=== PATIENT | female | born 1940 | race Caucasian/White ===

== ENCOUNTER → 2016-10-07 | Outpatient (CLI) | payer OTHER ==
[~2016-10-07] VITALS: Ht 172.7 cm; Wt 101.4 kg
[~2016-10-07] MED LIST: ACET-1311 PO; CLC/300 PO; DOCU-94 PO; EPP3/2 INJ; GABA-113 PO; LOSA1TAB PO; MISCCAP80 PO; OXYB3.9D TD; POLY1SOL6 OP; SYN100 PO; TRAM-10 PO; [UNRECOGNIZED DRUG - CODE] PO; [UNRECOGNIZED DRUG - CODE] PV
[2016-10-07 13:39] VITALS: BP 162/90; PULSE 83; Ht 172.7 cm; Wt 101.4 kg
== END | disposition home or self-care (01) ==
LOC: C.NEUR 13:07
PROVIDERS: ATTEND Internal Medicine Pulmonary Disease
DX: G47.33 Obstructive sleep apnea (adult) (pediatric) (principal); J45.909 Unspecified asthma, uncomplicated

== ENCOUNTER → 2017-01-20 | Outpatient (CLI) | payer OTHER ==
[2017-01-20 12:21] LABS: HEMATOCRIT 43.2 % (37-47); MEAN CELL VOLUME 92.1 fL (80-100); MEAN CORPUSCULAR HEMOGLOBIN 29.6 pg (25-34); MEAN CORPUSCULAR HGB CONC 32.2 g/dl (32-36); MEAN PLATELET VOLUME 10.6 fL (7.4-10.4); PLATELET COUNT 258 K/uL (130-400); RED BLOOD COUNT 4.69 M/uL (4.2-5.4); WHITE BLOOD COUNT 5.55 K/uL (4.8-10.8)
[2017-01-20 12:52] LABS: ESTIMATED AVERAGE GLUCOSE 123 mg/dl; HA1C FLAG Normal (Normal)
[2017-01-20 13:20] LABS: ALB/GLOB RATIO 1.2 (0.9-2); ALKALINE PHOSPHATASE 91 U/L (45-117); ALT/SGPT 26 U/L (12-78); AST/SGOT 20 U/L (15-37); BLOOD UREA NITROGEN 19 mg/dl (7-18); BUN/CREATININE RATIO 19.1 (10-20); CALCIUM 8.9 mg/dl (8.5-10.1); CARBON DIOXIDE 29 mmol/L (21-32); CHLORIDE 104 mmol/L (98-107); CHOLESTEROL 220 mg/dl (0-200); CHOLESTEROL/HDL RATIO 3.9; GLUCOSE 99 mg/dl (70-99); HDL CHOLESTEROL 56 mg/dl; LDL CHOLESTEROL CALCULATED 136 mg/dl; SODIUM 141 mmol/L (136-145); TRIGLYCERIDES 138 mg/dl (0-150); VERY LOW DENSITY LIPOPROT CALC 28 mg/dl
== END | disposition home or self-care (01) ==
LOC: C.LABPBG 09:57
PROVIDERS: ATTEND Family Medicine
DX: I12.9 Hypertensive chronic kidney disease with stage 1 through stage 4 chronic kidney disease, or unspecified chronic kidney disease (principal); E03.9 Hypothyroidism, unspecified; E78.5 Hyperlipidemia, unspecified; R73.01 Impaired fasting glucose; N18.3 Chronic kidney disease, stage 3 (moderate)

== ENCOUNTER → 2017-05-23 | Outpatient (CLI) | payer OTHER ==
[~2017-05-23] VITALS: Ht 172.7 cm; Wt 214.6 kg
[2017-05-23 14:52] VITALS: BP 147/64; PULSE 84; Ht 172.7 cm; Wt 214.6 kg
== END | disposition home or self-care (01) ==
LOC: C.NEUR 13:25
PROVIDERS: ATTEND Physician Assistant
DX: G47.30 Sleep apnea, unspecified (principal)

== ENCOUNTER → 2017-08-12 | Outpatient (CLI) | payer OTHER ==
[2017-08-12 12:18] LABS: ESTIMATED AVERAGE GLUCOSE 105 mg/dl; HA1C FLAG Normal (Normal)
[2017-08-12 12:35] LABS: ALT/SGPT 25 U/L (12-78); BLOOD UREA NITROGEN 20 mg/dl (7-18); CALCIUM 9.4 mg/dl (8.5-10.1); CARBON DIOXIDE 33 mmol/L (21-32); CHLORIDE 103 mmol/L (98-107); CREATININE 0.96 mg/dl (0.60-1.20); GLUCOSE 96 mg/dl (70-99); POTASSIUM 4.2 mmol/L (3.5-5.1); SODIUM 141 mmol/L (136-145)
[2017-08-12 12:38] LABS: CHOLESTEROL 200 mg/dl (0-200); CHOLESTEROL/HDL RATIO 4.3; HDL CHOLESTEROL 47 mg/dl; LDL CHOLESTEROL CALCULATED 129 mg/dl; TRIGLYCERIDES 121 mg/dl (0-150); VERY LOW DENSITY LIPOPROT CALC 24 mg/dl
== END | disposition home or self-care (01) ==
LOC: C.LABPBG 10:56
PROVIDERS: ATTEND Family Medicine
DX: I10 Essential (primary) hypertension (principal); N18.3 Chronic kidney disease, stage 3 (moderate); E03.9 Hypothyroidism, unspecified; R73.01 Impaired fasting glucose; E87.6 Hypokalemia; M25.50 Pain in unspecified joint

== ENCOUNTER → 2017-08-28 | Outpatient (CLI) | payer OTHER | END | disposition home or self-care (01) | LOC: C.LABPBG 10:07 | PROVIDERS: ATTEND Family Medicine | DX: M25.571 Pain in right ankle and joints of right foot (principal) ==

== ENCOUNTER → 2018-05-05 | Outpatient (CLI) | payer OTHER | END | disposition home or self-care (01) | LOC: C.MAMM 09:55 | PROVIDERS: ATTEND Family Medicine | DX: Z78.0 Asymptomatic menopausal state (principal) ==

== ENCOUNTER 2018-11-12 20:54 | Inpatient (IN) ==
[2018-11-12] MEDS ORDERED: ONDANSETRON INJ 2 MG/ML 2 ML VIAL IV STA (21:59)
[2018-11-12] MEDS ORDERED: GI COCKTAIL ED USE PO ONE (21:59)
[2018-11-12] MEDS ORDERED: SODIUM CHLORIDE 0.9% 500 ML IV SCH (22:00)
[2018-11-12 22:07] LABS: Basophils # (auto) 0.03 K/uL (0-0.2); Basophils % (auto) 0.2 %; Eosinophils # (auto) 0.04 K/uL (0-0.5); Eosinophils % (auto) 0.2 %; Hematocrit (blood only) 43.3 % (37-47); Hemoglobin 14.4 g/dL (12.0-16.0); Immature Granulocytes # (auto) 0.05 K/uL (0.00-0.02); Immature Granulocytes % (auto) 0.3 %; Lymphocytes # (auto) 1.28 K/uL (1.2-3.4); Lymphocytes % (auto) 6.8 %; Mean Corpuscular Hgb Conc 33.3 g/dL (32-36); Mean Corpuscular Volume 92.9 fL (80-100); Mean Platelet Volume 11.1 fL (7.4-10.4); Monocytes # (auto) 0.99 K/uL (0.11-0.59); Monocytes % (auto) 5.3 %; Neutrophils % (auto) 87.2 %; Platelet Count 122 K/uL (130-400); RDW Coefficient of Variation 14.2 % (11.5-14.5); RDW Standard Deviation 47.7 fL (36.4-46.3); Red Blood Count 4.66 M/uL (4.2-5.4); White Blood Count 18.69 K/uL (4.8-10.8)
--- NOTE | 2018-11-12 22:13 | XRay Report ---
XR chest 1V portable HISTORY: Atypical chest Pain COMPARISON: Chest 05/06/2015. FINDINGS: No pneumothorax. No pleural effusions. The heart is mildly enlarged. No focal lung consolid ations to suggest pneumonia. No evidence for pulmonary edema. Metallic anchor within the left shoulde r. IMPRESSION: Mild cardiomegaly. No evidence for pulmonary edema. Electronically signed by: Jorge Alex M.D. 11/12/2018 10:12 PM
[2018-11-12 22:14] LABS: Albumin Level 3.6 gm/dl (3.4-5.0); BUN Creatinine Ratio 26.4 (10-20); Calcium 8.9 mg/dl (8.5-10.1); Creatinine Clr Calc Pharmacy 35.4 ml/min; Est GFR (African American) 44.7; Est GFR (Non-African American) 38.5; Magnesium 2.3 mg/dl (1.8-2.4)
[2018-11-12 22:28] LABS: Albumin Globulin Ratio 0.9 (0.9-2); Bilirubin,Total 0.7 mg/dl (0.2-1); Globulin 3.9 gm/dl (2.5-4.0); Total Protein 7.5 gm/dl (6.4-8.2); Troponin I 1.76 ng/ml (0-0.045)
[2018-11-12] MEDS ORDERED: IOVERSOL 100ml IV PRN (22:35)
[2018-11-12 22:44] LABS: Amphetamines+Metham, Urine Neg (Neg); Barbiturates, Urine Neg (Neg); Benzodiazepine, Urine Neg (Neg); Cocaine, Urine Neg (Neg); MDMA (Ecstacy), Urine Neg (Neg); Methadone, Urine Neg (Neg); Opiate, Urine Neg (Neg); Phencyclidine, Urine Neg (Neg)
--- NOTE | 2018-11-12 22:45 | Emergency Department Note ---
ED Visit Note I have seen and examined this patient with Veronique Juarez and agree with the treatment plan .
--- NOTE | 2018-11-12 22:54 | CT Scan Report ---
ABDOMEN AND PELVIS CT WITH IV CONTRAST CT DOSE: 489.12 mGy.cm HISTORY: mid abd pain TECHNIQUE: Multiaxial CT images of the abdomen and pelvis were performed following the use of intrave nous contrast. A dose lowering technique was utilized adhering to the principles of ALARA. COMPARISON STUDY: None. FINDINGS: Mild emphysema but lung bases. No pneumoperitoneum. No pneumatosis. No suspicious lytic or blastic osseous lesions. Small fat-containing right-sided Bochdalek hernia. Cholecystectomy. The live r, pancreas, spleen and adrenal glands are unremarkable. No retroperitoneal lymphadenopathy. Left cir cumaortic renal vein. Calcified plaque within the normal caliber abdominal aorta. Moderate bladder wa ll thickening. Hysterectomy. Colonic diverticulosis. No evidence for diverticulitis. Trace pelvic indra e fluid. No bowel wall thickening or obstruction. Fluid-filled large and small bowel. No hydronephros is. Bilateral renal hypodense lesions. Dominant upper pole lesions measure 1.9 cm on the right and 2 cm on the left. These are consistent with cysts. A few additional subcentimeter left renal hypodense lesions which are too small to characterize. There is an 11 mm hypodense lesion within the lower pole of the left kidney which is difficult to characterize but favors a cyst. IMPRESSION: 1. No bowel wall thickening or obstruction. 2. Fluid-filled nondilated loops of large and small bowel. This can be seen the setting of a diarrhea l illness/gastroenteritis. 3. Cholecystectomy and appendectomy. 4. Hysterectomy. 5. Colonic diverticulosis. 6. Moderate bladder wall thickening. This could be due to underdistention. Recommend correlation with urinalysis. 7. Bilateral renal hypodense lesions as described above. Electronically signed by: Jorge Alex M.D. 11/12/2018 10:51 PM
[2018-11-12 23:26] LABS: INR 1.1 (0.9-1.1); Partial Thromboplastin Ratio 1.2; Partial Thromboplastin Time 32.3 Seconds (21.0-31.0); Prothrombin Time 10.7 Seconds (9.0-12.0)
[2018-11-12] MEDS ORDERED: HEPARIN SOD (PORCINE) 1000 UNIT/ML 10 ML VIAL ONE (23:28)
[2018-11-12] MEDS ORDERED: HEPARIN 25000 UNIT/500 ML D5W IV ONE (23:29)
[2018-11-12] MEDS ORDERED: HEPARIN STANDARD DEXTROSE 25,000 UNITS/500 ML IV SCH (23:29)
[2018-11-12] MEDS ORDERED: HEPARIN SOD (PORCINE) 1000 UNIT/ML 10 ML VIAL IV ONE (23:30)
--- NOTE | 2018-11-12 23:44 | Emergency Department Note ---
History of Present Illness General Chief complaint: Dehydration Stated complaint: DEHYDRATED, ABDOMINAL PAIN History of Present Illness Maximum Pain Intensity: 7 This 77-year-old presents to the ER complaining of abdominal pain and diarrhea Location: Mid abdomen Quality: Aching Severity: Moderate Duration: 2 days Timin days ago Context: Symptoms persisted and patient came in Modifying factors: better with nothing; worse with eating Patient states his been so nauseous she has not been able to eat. She went to urgent care was sent here to the ER. Patient denies chest pain, dyspnea, fevers , vomiting, back pain, urinary symptoms. No recent antibiotics or well water. She has been having some diarrhea today. Home Medications Home Medications Medication Instructions Recorded Confirmed Type Acetaminophen (Tylenol) 650 mg PO Q4H PRN #0 tab 05/06/15 History Clindamycin HCl 600 mg PO PRN/UD 7 Days #21 cap 05/06/15 History DOCUSATE SODIUM (COLACE) 100 mg PO DAILY 15 Days #30 cap 05/06/15 History EPINEPHRINE (EPIPEN 2-SADE) 0.3 mg INJ PRN #0 05/06/15 History Gabapentin (Neurontin) 300 mg PO BID #0 cap 05/06/15 History LOSARTAN POTASSIUM (COZAAR) 25 mg PO DAILY 30 Days #30 tab 05/06/15 History NIZATIDINE (AXID AR) 150 mg PO BID #0 05/06/15 History Oxybutynin Chloride (Oxytrol) 1 patch TRANSDERMAL TW #0 patch 05/06/15 History POLYETHYLENE GLYCOL-PROPYLENE 1 drp OPHTHALMIC (EYE) BID PRN #30 05/06/15 History (SYSTANE ULTRA) ml PROBIOTIC PRODUCT (PROBIOTIC) 1 cap PO DAILY #0 05/06/15 History Tramadol (Ultram) 50 mg PO Q6H PRN #0 tab 05/06/15 History Levothyroxine Sodium (Synthroid) 125 mcg PO DAILYBB #30 tab 05/08/15 Rx Miconazole Nitrate (Sm Miconazole 1 supp VAGINAL HS #7 supp 05/08/15 Rx 7) Allergies Allergy/AdvReac Type Severity Reaction Status Date / Time Penicillins Allergy Severe anaphylaxis Verified 05/06/15 01:43 moxifloxacin Allergy Unknown ITCHING, Verified 05/06/15 01:43 REDNESS codeine AdvReac Unknown dizzy Verified 05/06/15 01:43 cortisone AdvReac Unknown reddness Verified 05/06/15 01:43 in face. ephedrine AdvReac Unknown DIZZY Verified 05/06/15 01:43 Past Med/Surg History Medical History Hyponatremia (Acute) High blood pressure Social History Feels Safe at Home: Yes Smoking Status: Former smoker Review of Systems All systems reviewed & are unremarkable except as noted in HPI & below Physical Exam Vital Signs Vital Signs - 24 hr 11/12/18 21:03 11/12/18 23:18 Temperature 36.5 C Temperature Source Oral Sepsis Recent Fever Within 48 Hours No Sepsis New/Unexplained Change in Mental Status No Sepsis Action Taken by Nursing No Action Required Pulse Rate 101 H Pulse Rate [Right Finger] 85 Pulse Rhythm Regular Pulse Strength Normal Respiratory Rate 19 16 Respiratory Effort / Characteristics Non-Labored Spontaneous Respiratory Depth Normal Respiratory Pattern Regular Blood Pressure 154/65 H Blood Pressure [Right Arm] 168/86 H Blood Pressure Mean 94 Blood Pressure Mean [Right Arm] 113 Blood Pressure Position Sitting Pulse Oximetry 95 95 Oxygen Delivery Method Room Air VITALS: Vitals are noted on the nurse's note and reviewed by myself. Vital signs stable. GENERAL: Pleasant female, in no acute distress, nondiaphoretic, well-developed well-nourished. SKIN: The skin was without rashes, erythema, edema, or bruising. There is no tenting of the skin. Capillary reflex less than 2 seconds. HEAD: Normocephalic atraumatic. EARS: External auditory canals clear, tympanic membranes pearly vasquez without erythema or effusion bilaterally. EYES: Pupils equal round and reactive to light and accommodation. Conjunctivae without injection, sclerae without icterus. Extraocular movements intact. NOSE: Patent, turbinates without inflammation or discharge. MOUTH: Mucous membranes mildly dry. Pharynx without erythema or exudate. Uvula midline. Airway patent. Tongue does not deviate. NECK: Supple without nuchal rigidity. No lymphadenopathy. No thyromegaly. Cervical spine is nontender. No JVD. HEART: Irregularly irregular LUNGS: Clear to auscultation bilaterally without wheezes, rales or rhonchi. No retractions or accessory muscle use. ABDOMEN: Positive bowel sounds x 4. Normal tympanic percussion. Soft, tender to palpation mid abdomen , without masses or organomegaly. Daniels sign negative. No guarding or rebound tenderness. No CVA tenderness MUSCULOSKELETAL: No muscle atrophy, erythema, or edema noted. NEURO: Patient was alert and oriented to person place and time. Normal sensation to light and sharp touch. No focal neurological deficits. Course Administered Medications Ioversol (Optiray 320 100ml) 89 ml IV ONCE PRN PRN Reason: Interaction Checking Stop: 11/16/18 22:34 Last Admin: 11/12/18 22:36 Dose: 1 ml Discontinued Medications Al Hydrox/Mg Hydrox/Simethicone () 1 dose PO ONE ONE Stop: 11/12/18 22:00 Last Admin: 11/12/18 22:13 Dose: 1 dose Sodium Chloride (Nss) 500 mls @ 999 mls/hr IV .Q31M ARISTIDES Stop: 11/12/18 22:30 Last Infusion: 11/12/18 23:17 Dose: 0 mls/hr Admin: 11/12/18 22:14 Dose: 999 mls/hr Ondansetron HCl (Zofran) 4 mg IV NOW STA Stop: 11/12/18 22:00 Last Admin: 11/12/18 22:14 Dose: 4 mg Medical Decision Making Medical Records Attestation: I reviewed the patient's medical records. Home Medications Current Medication List: was personally reviewed by me Laboratory Data Attestation: I reviewed the patient's lab results. Result diagrams: 11/12/18 21:20 11/12/18 21:20 Lab Results 11/12/18 11/12/18 11/12/18 Range/Units 21:20 21:20 21:20 WBC 18.69 H (4.8-10.8) K/uL RBC 4.66 (4.2-5.4) M/uL Hgb 14.4 (12.0-16.0) g/dL Hct 43.3 (37-47) % MCV 92.9 (80-100) fL MCH 30.9 (25-34) pg MCHC 33.3 (32-36) g/dL RDW Std Deviation 47.7 H (36.4-46.3) fL RDW Coeff of Carrie 14.2 (11.5-14.5) % Plt Count 122 L (130-400) K/uL MPV 11.1 H (7.4-10.4) fL Immature Gran % (Auto) 0.3 % Neut % (Auto) 87.2 % Lymph % (Auto) 6.8 % [place] % (Auto) 5.3 % Eos % (Auto) 0.2 % Baso % (Auto) 0.2 % Immature Gran # (Auto) 0.05 H (0.00-0.02) K/uL Neut # (Auto) 16.30 H (1.4-6.5) K/uL Lymph # (Auto) 1.28 (1.2-3.4) K/uL [place] # (Auto) 0.99 H (0.11-0.59) K/uL Eos # (Auto) 0.04 (0-0.5) K/uL Baso # (Auto) 0.03 (0-0.2) K/uL PT 10.7 (9.0-12.0) Seconds INR 1.1 (0.9-1.1) APTT 32.3 H (21.0-31.0) Seconds PTT Ratio 1.2 Sodium 141 (136-145) mmol/L Potassium 4.0 (3.5-5.1) mmol/L Chloride 107 (98-107) mmol/L Carbon Dioxide 26 (21-32) mmol/L Anion Gap 8.0 (3-11) BUN 35 H (7-18) mg/dl Creatinine 1.32 H (0.6-1.2) mg/dl Est Cr Clr Drug Dosing 35.4 ml/min Est GFR ( Amer) 44.7 Est GFR (Non-Af Amer) 38.5 BUN/Creatinine Ratio 26.4 H (10-20) Glucose 96 (70-99) mg/dl Calcium 8.9 (8.5-10.1) mg/dl Magnesium 2.3 (1.8-2.4) mg/dl Total Bilirubin 0.7 (0.2-1) mg/dl AST 57 H (15-37) U/L ALT 62 (12-78) U/L Alkaline Phosphatase 96 (45-117) U/L Total Creatine Kinase 259 H (26-192) U/L POC Troponin I (0-0.045) ng/ml Troponin I 1.760 H* (0-0.045) ng/ml Total Protein 7.5 (6.4-8.2) gm/dl Albumin 3.6 (3.4-5.0) gm/dl Globulin 3.9 (2.5-4.0) gm/dl Albumin/Globulin Ratio 0.9 (0.9-2) Lipase 72 L (73-393) U/L Urine Opiates Screen (Neg) Ur Methadone, Qual (Neg) Urine Barbiturates (Neg) Ur Phencyclidine (PCP) (Neg) U Amphetamin/Meth Scrn (Neg) MDMA (Ecstasy) Screen (Neg) U Benzodiazepines Scrn (Neg) Ur Cocaine Metabolite (Neg) U Marijuana (THC) Screen (Neg) 11/12/18 11/12/18 Range/Units 21:22 22:19 WBC (4.8-10.8) K/uL RBC (4.2-5.4) M/uL Hgb (12.0-16.0) g/dL Hct (37-47) % MCV (80-100) fL MCH (25-34) pg MCHC (32-36) g/dL RDW Std Deviation (36.4-46.3) fL RDW Coeff of Carrie (11.5-14.5) % Plt Count (130-400) K/uL MPV (7.4-10.4) fL Immature Gran % (Auto) % Neut % (Auto) % Lymph % (Auto) % [place] % (Auto) % Eos % (Auto) % Baso % (Auto) % Immature Gran # (Auto) (0.00-0.02) K/uL Neut # (Auto) (1.4-6.5) K/uL Lymph # (Auto) (1.2-3.4) K/uL [place] # (Auto) (0.11-0.59) K/uL Eos # (Auto) (0-0.5) K/uL Baso # (Auto) (0-0.2) K/uL PT (9.0-12.0) Seconds INR (0.9-1.1) APTT (21.0-31.0) Seconds PTT Ratio Sodium (136-145) mmol/L Potassium (3.5-5.1) mmol/L Chloride (98-107) mmol/L Carbon Dioxide (21-32) mmol/L Anion Gap (3-11) BUN (7-18) mg/dl Creatinine (0.6-1.2) mg/dl Est Cr Clr Drug Dosing ml/min Est GFR ( Amer) Est GFR (Non-Af Amer) BUN/Creatinine Ratio (10-20) Glucose (70-99) mg/dl Calcium (8.5-10.1) mg/dl Magnesium (1.8-2.4) mg/dl Total Bilirubin (0.2-1) mg/dl AST (15-37) U/L ALT (12-78) U/L Alkaline Phosphatase (45-117) U/L Total Creatine Kinase (26-192) U/L POC Troponin I 1.19 H (0-0.045) ng/ml Troponin I (0-0.045) ng/ml Total Protein (6.4-8.2) gm/dl Albumin (3.4-5.0) gm/dl Globulin (2.5-4.0) gm/dl Albumin/Globulin Ratio (0.9-2) Lipase (73-393) U/L Urine Opiates Screen Neg (Neg) Ur Methadone, Qual Neg (Neg) Urine Barbiturates Neg (Neg) Ur Phencyclidine (PCP) Neg (Neg) U Amphetamin/Meth Scrn Neg (Neg) MDMA (Ecstasy) Screen Neg (Neg) U Benzodiazepines Scrn Neg (Neg) Ur Cocaine Metabolite Neg (Neg) U Marijuana (THC) Screen Neg (Neg) Blood Pressure Blood Pressure Findings: Elevated blood pressure Blood Pressure Disposition: elevated BP felt to be situational MDM Narrative Prior records/ancillary studies reviewed. Triage Nursing notes reviewed. Additional history obtained from family. The patient's history was concerning for abdominal pain. Differential diagnosis: Etiologies such as appendicitis, cardiac, diverticulitis, PUD, biliary pathology , UTI, pancreatitis, obstruction, mesenteric ischemia, aortic pathology, infections, inflammatory bowel disease, renal colic, as well as others were entertained. Physical examination findings: As above. ER treatment provided: GI cocktail p.o., Zofran, IV fluids, heparin with bolus On reassessment the patient felt better. Diagnostics interpreted by me: ECG: Irregularly irregular with occasional PVC, no acute ST-T wave changes. EKG compared to prior EKG. Impression new onset atrial fibrillation with occasional PVC interpreted by myself Second EKG still shows ongoing rate control A. fib. The labs revealed elevated troponin. Repeat EKG is unchanged. Leukocytosis Imaging studies: [] XR chest 1V portable HISTORY: Atypical chest Pain COMPARISON: Chest 05/06/2015. FINDINGS: No pneumothorax. No pleural effusions. The heart is mildly enlarged. No focal lung consolidations to suggest pneumonia. No evidence for pulmonary edema. Metallic anchor within the left shoulder. IMPRESSION: Mild cardiomegaly. No evidence for pulmonary edema. Electronically signed by: Jorge Alex M.D. 11/12/2018 10:12 PM Dictated: 11/12/182210 Transcribed: 11/12/182210 ABDOMEN AND PELVIS CT WITH IV CONTRAST CT DOSE: 489.12 mGy.cm HISTORY: mid abd pain TECHNIQUE: Multiaxial CT images of the abdomen and pelvis were performed following the use of intravenous contrast. A dose lowering technique was utilized adhering to the principles of ALARA. COMPARISON STUDY: None. FINDINGS: Mild emphysema but lung bases. No pneumoperitoneum. No pneumatosis. No suspicious lytic or blastic osseous lesions. Small fat-containing right- sided Bochdalek hernia. Cholecystectomy. The liver, pancreas, spleen and adrenal glands are unremarkable. No retroperitoneal lymphadenopathy. Left circumaortic renal vein. Calcified plaque within the normal caliber abdominal aorta. Moderate bladder wall thickening. Hysterectomy. Colonic diverticulosis. No evidence for diverticulitis. Trace pelvic free fluid. No bowel wall thickening or obstruction. Fluid-filled large and small bowel. No hydronephrosis. Bilateral renal hypodense lesions. Dominant upper pole lesions measure 1.9 cm on the right and 2 cm on the left. These are consistent with cysts. A few additional subcentimeter left renal hypodense lesions which are too small to characterize. There is an 11 mm hypodense lesion within the lower pole of the left kidney which is difficult to characterize but favors a cyst. IMPRESSION: 1. No bowel wall thickening or obstruction. 2. Fluid-filled nondilated loops of large and small bowel. This can be seen the setting of a diarrheal illness/gastroenteritis. 3. Cholecystectomy and appendectomy. 4. Hysterectomy. 5. Colonic diverticulosis. 6. Moderate bladder wall thickening. This could be due to underdistention. Recommend correlation with urinalysis. 7. Bilateral renal hypodense lesions as described above. Electronically signed by: Jorge Alex M.D. 11/12/2018 10:51 PM Dictated: 11/12/182239 Transcribed: 11/12/182239 Consultation: A consultation was placed with the hospitalist, Dr. Goldstein. The case was discussed and diagnostics were reviewed. The patient was evaluated in the ER for further treatment. Dr. Goldstein recommends heparin with bolus and is aware the platelet count is 122,000 Exam and history seem consistent with new onset A. fib with an elevated troponin concerning for possible N STEMI. Patient started on heparin. She has had no problems on heparin in the past. Atrial fibrillation is new. She is rate controlled currently. Patient is agreeable to treatment plan of admission. Repeat EKG is unchanged. Patient denies any prior heart history and has no current chest pain. By the evaluation outlined above emergent etiologies such as appendicitis, diverticulitis, PUD, biliary pathology, pancreatitis, obstruction, mesenteric ischemia, inflammatory bowel disease, renal colic, as well as others were deemed relatively unlikely. The pt informed about the findings as listed above. All questions were answered and pleased with the treatment. Case reviewed with my attending The chart was completed utilizing [employer], a division of [employer] voice recognition software. Grammatical errors, random word insertions, pronoun errors, and incomplete sentences are an occassional consequence of this system due to software limitations, ambient noise, and hardware issues. Any formal questions or concerns about the content, text, or information contained within the body of this dictation should be directly addressed to the physician or assistant for clarification. Impression & Plan Atrial fibrillation, new onset, Non-ST elevation ID (NSTEMI), Abdominal pain Critical Care Time I have personally spent greater than 30 minutes of critical care time in the direct management of this patient. This includes bedside care, interpretation of diagnostic studies, and testing, discussion with consultants, patient, and family members, and other required patient management activities. This 30 minutes is in excess of all separately billable procedures. Discharge Plan Visit Data Chief Complaint: Dehydration Stated Complaint: DEHYDRATED, ABDOMINAL PAIN ED Provider: [facility] Midlevel Provider: Veronique Juarez Discharge Problem: Atrial fibrillation, new onset, Non-ST elevation ID (NSTEMI), Abdominal pain Patient Disposition: Admitted As Inpatient Condition: Fair Forms Stand Alone Forms: [facility] Prescriptions Prescriptions: No Action Oxybutynin Chloride (Oxytrol) 3.9 MG/24 HR TRANSDERM SYS 1 patch Transdermal TW Qty: 0 RF: 0 NIZATIDINE (AXID AR) 75 MG tablet 150 mg PO BID Qty: 0 RF: 0 PROBIOTIC PRODUCT (PROBIOTIC) 1 CAP capsule 1 cap PO DAILY Qty: 0 RF: 0 Gabapentin (Neurontin) 300 MG capsule 300 mg PO BID Qty: 0 RF: 0 LOSARTAN POTASSIUM (COZAAR) 25 MG tablet 25 mg PO DAILY 30 Days Qty: 30 RF: 5 Acetaminophen (Tylenol) 325 MG tablet 650 mg PO Q4H PRN (Reason: Pain or Fever) Qty: 0 RF: 0 DOCUSATE SODIUM (COLACE) 100 MG capsule 100 mg PO DAILY 15 Days Qty: 30 RF: 0 Tramadol (Ultram) 50 MG tablet 50 mg PO Q6H PRN (Reason: Pain) Qty: 0 RF: 0 POLYETHYLENE GLYCOL-PROPYLENE (SYSTANE ULTRA) 1 VÍCTOR SOLTAB 1 drp ophthalmic (eye) BID PRN (Reason: DRY EYES) Qty: 30 RF: 4 Clindamycin HCl 300 MG capsule 600 mg PO PRN/UD 7 Days Qty: 21 RF: 0 EPINEPHRINE (EPIPEN 2-SADE) 0.3 MG INJECTION 0.3 mg INJ PRN Qty: 0 RF: 0 Levothyroxine Sodium (Synthroid) 100 MCG tablet 125 mcg PO DAILYBB Qty: 30 RF: 0 Miconazole Nitrate (Sm Miconazole 7) 7 SUPP/BOX suppository 1 supp Vaginal HS Qty: 7 RF: 0 Referrals Referrals: Maria T Gdowin DO [Primary Care Provider] -
[2018-11-12 23:55] LABS: Appearance Urine Clear (Clear); Bacteria Urine Automated 4+ (Negative); Bilirubin Urine Negative (Negative); Color Urine Yellow; Epithelial Cell Urine Auto >30 /lpf (0-5); Glucose Urine UA Negative (Negative); Ketones Urine 1+ (Negative); Leukocyte Esterase Urine Trace (Negative); Nitrite Urine Positive (Negative); Protein Urine Trace (Negative); Specific Gravity Urine 1.019 (1.000-1.030); Urobilinogen Urine Negative (Negative); pH Urine 5.5 (4.5-7.5)
--- NOTE | 2018-11-12 23:55 | History & Physical Report ---
Date of Service November 12, 2018 Assessment & Plan (1) Atrial fibrillation, new onset: Tee 77yo F presents with abdominal pain and diarrhea, found to have new Afib with an elevated trop New onset Afib -Unclear if afib or sinus with arrhythmia -Heparin drip overnight -Trend trops -Optimize electrolytes -cardiology consulted for elevated trop -TSH WNL -Echo in am ordered -Lipid and A1c with AM labs -NPO for any possible intervention Abdominal pain -Likely gastroenteritis, but may be silent FL with elevated trop? -CT abdo showing no signs of ischemia, but very tender on exam, may consider -lactate ordered -Will test FOBT, C.dif, stool culture -KUB in AM -Bentyl for cramps -Gentle rehydration NSS at 80 -Probiotic -[place] diet once diet reinstated Elevated serum creatinine -Monitor labs, likely related to poor PO intake Elevated trop -Heparin drip -Cards consult as above -no ST changes noted on EKG -No clinical symptoms of ischemia aside from GI upset -trend trops q6h x 24 hours HTN -Continue home meds Hypothyroid -Cont home meds COSMO -Set up CPAP DVTP: hep drip CODE: full Dispo: admit to tele for further management (2) Abdominal pain: (3) Elevated serum creatinine: (4) Elevated troponin: (5) High blood pressure: (6) Hypothyroid: (7) COSMO (obstructive sleep apnea): History of Present Illness Chief Complaint: Rosa is a pleasant 77yo F who presents with acute onset epigastric pain which started 2 days ago. She notes it was associated with some weakness, fatigue, "not feeling herself", nausea, and she did have some diarrhea today which she noted was runny and dark green, almost black. She has not had an appetite, has been drinking water, but has not eaten anything x 2 days, though she did try chicken broth but it did not sit well with her. She denies vomiting, lightheadedness, dizziness, chest pain, dyspnea, diaphoresis, palpitations. She denies eating anything abnormal that would induce diarrhea. In the ER, it was noted on EKG that she was in atrial fibrillation, normal rate , with otherwise normal EKG. It was also noted that her troponin was elevated at 1.76, with POC repeat of 1.19. Other findings include: elevated WBC of 19, low platelets of 122, and elevated Cr at 1.32. Her CK was mildly elevated at 259. She is a previous smoker with 50pk year history. Family history of aneurysms and strokes at young ages, father had FL in his 60s. Ct Abdo was overall unremarkable aside from some evidence of gastroenteritis. PMH: HTN--started in her 30s, previously poorly controlled COPD--mild, well controlled, takes no meds urinary incontinence--takes no meds Obstructive sleep apnea-uses CPAP RLS Hypothyroid GERD PSH: shoulder surgery LOLA/BSO Cholecystectomy Appendectomy TKR x 2 Primary Care Provider: Maria T Godwin DO Allergies Allergy/AdvReac Type Severity Reaction Status Date / Time Penicillins Allergy Severe anaphylaxis Verified 11/13/18 00:17 moxifloxacin Allergy Unknown ITCHING, Verified 11/13/18 00:17 REDNESS codeine AdvReac Unknown dizzy Verified 11/13/18 00:17 cortisone AdvReac Unknown reddness Verified 11/13/18 00:17 in face. ephedrine AdvReac Unknown DIZZY Verified 11/13/18 00:17 Home Medications Home Medications Medication Instructions Recorded Confirmed Type Probiotic 1 dose PO DAILY 11/13/18 11/13/18 History acetaminophen 500 mg PO Q4 PRN 11/13/18 11/13/18 History amlodipine 5 mg PO DAILY 11/13/18 11/13/18 History biotin 1 mg PO DAILY 11/13/18 11/13/18 History calcium carbonate [Tums] 200 mg PO DAILY 11/13/18 11/13/18 History cholecalciferol (vitamin D3) 1,000 unit PO DAILY 11/13/18 11/13/18 History [Vitamin D3] clindamycin HCl 600 mg PO UD PRN 11/13/18 11/13/18 History docusate sodium [Colace] 100 mg PO HS 11/13/18 11/13/18 History furosemide 20 mg PO DAILY 11/13/18 11/13/18 History gabapentin 300 mg PO BID 11/13/18 11/13/18 History levothyroxine 125 mcg PO DAILY 11/13/18 11/13/18 History losartan 100 mg PO DAILY 11/13/18 11/13/18 History nizatidine 150 mg PO BID 11/13/18 11/13/18 History peg 400-propylene glycol [Systane 2 drp OPHTHALMIC (EYE) UD 11/13/18 11/13/18 History Ultra] vitamins A,C,D-twow-oftvzj 1 cap PO BID 11/13/18 11/13/18 History [PreserVision AREDS] white petrolatum-mineral oil 1 applic OPHTHALMIC (EYE) UD 11/13/18 11/13/18 History [Refresh P.M.] Past Med/Surg History Medical History Hyponatremia (Acute) High blood pressure Social History Feels Safe at Home: Yes Smoking Status: Former smoker Review of Systems All systems reviewed & are unremarkable except as noted in HPI & below Constitutional: + fatigue, + weakness, + anorexia and + weight gain Respiratory: no cough and no dyspnea Cardiovascular: no chest pain, no chest pain at rest, no radiating jaw, neck or arm pain, no dyspnea, no dyspnea on exertion, no lightheadedness, no syncope and no calf pain Gastrointestinal: + abdominal pain, + heartburn, + nausea, + change in bowel habits, + change in stools and + diarrhea/loose stools; no vomiting and no blood in stools Genitourinary (Female): + urinary incontinence Neurologic: + generalized weakness; no tingling and no syncope Physical Exam 2 Vital Signs (Past 24 Hours): Last Vital Signs Temp 36.5 C 11/12/18 21:03 Pulse 85 11/12/18 23:18 Resp 16 11/12/18 23:18 BP 168/86 H 11/12/18 23:18 Pulse Ox 95 11/12/18 23:18 Constitutional: WD/WN, vitals as above not ill appearing ENMT: external ear and nose normal, oropharynx normal Neck: normal visual inspection Respiratory: normal respiratory effort, lungs clear to auscultation Cardiovascular: RRR, no murmur, no edema Rate/Rhythm: regular rate; + abnormal rhythm Gastrointestinal (Abdomen): Inspection/Auscultation: + abdomen distended and normal bowel sounds Percussion/Palpation: + abdomen tender and abdomen soft Musculoskeletal: no cyanosis or clubbing, extremities motor strength 5/5 Skin: no rashes, warm and dry Neurologic: PERRL, EOMI, accommodation nl, no face palsy, no dysarthria Psychiatric: A+Ox3, euthymic affect Results & Data Laboratory Results 11/12/18 11/12/18 11/12/18 Range/Units 22:19 21:22 21:22 WBC (4.8-10.8) K/uL RBC (4.2-5.4) M/uL Hgb (12.0-16.0) g/dL Hct (37-47) % MCV (80-100) fL MCH (25-34) pg MCHC (32-36) g/dL RDW Std Deviation (36.4-46.3) fL RDW Coeff of Carrie (11.5-14.5) % Plt Count (130-400) K/uL MPV (7.4-10.4) fL Immature Gran % (Auto) % Neut % (Auto) % Lymph % (Auto) % [place] % (Auto) % Eos % (Auto) % Baso % (Auto) % Immature Gran # (Auto) (0.00-0.02) K/uL Neut # (Auto) (1.4-6.5) K/uL Lymph # (Auto) (1.2-3.4) K/uL [place] # (Auto) (0.11-0.59) K/uL Eos # (Auto) (0-0.5) K/uL Baso # (Auto) (0-0.2) K/uL PT (9.0-12.0) Seconds INR (0.9-1.1) APTT (21.0-31.0) Seconds PTT Ratio Sodium (136-145) mmol/L Potassium (3.5-5.1) mmol/L Chloride (98-107) mmol/L Carbon Dioxide (21-32) mmol/L Anion Gap (3-11) BUN (7-18) mg/dl Creatinine (0.6-1.2) mg/dl Est Cr Clr Drug Dosing ml/min Est GFR ( Amer) Est GFR (Non-Af Amer) BUN/Creatinine Ratio (10-20) Glucose (70-99) mg/dl Calcium (8.5-10.1) mg/dl Magnesium (1.8-2.4) mg/dl Total Bilirubin (0.2-1) mg/dl AST (15-37) U/L ALT (12-78) U/L Alkaline Phosphatase (45-117) U/L Total Creatine Kinase (26-192) U/L POC Troponin I 1.19 H (0-0.045) ng/ml Troponin I (0-0.045) ng/ml Total Protein (6.4-8.2) gm/dl Albumin (3.4-5.0) gm/dl Globulin (2.5-4.0) gm/dl Albumin/Globulin Ratio (0.9-2) Lipase (73-393) U/L TSH (0.300-4.500) uIu/ml Urine Color Yellow Urine Appearance Clear (Clear) Urine pH 5.5 (4.5-7.5) Ur Specific [place] 1.019 (1.000-1.030) Urine Protein Trace H (Negative) Urine Glucose (UA) Negative (Negative) Urine Ketones 1+ H (Negative) Urine Blood 1+ H (Negative) Urine Nitrite Positive H (Negative) Urine Bilirubin Negative (Negative) Urine Urobilinogen Negative (Negative) Ur Leukocyte Esterase Trace H (Negative) Urine WBC (Auto) 10-30 H (0-5) /hpf Urine RBC (Auto) 0-4 (0-4) /hpf U Hyaline Cast (Auto) 1-5 (0-5) /lpf U Epithel Cells (Auto) >30 H (0-5) /lpf Urine Bacteria (Auto) 4+ H (Negative) Urine Opiates Screen Neg (Neg) Ur Methadone, Qual Neg (Neg) Urine Barbiturates Neg (Neg) Ur Phencyclidine (PCP) Neg (Neg) U Amphetamin/Meth Scrn Neg (Neg) MDMA (Ecstasy) Screen Neg (Neg) U Benzodiazepines Scrn Neg (Neg) Ur Cocaine Metabolite Neg (Neg) U Marijuana (THC) Screen Neg (Neg) 11/12/18 11/12/18 11/12/18 Range/Units 21:20 21:20 21:20 WBC 18.69 H (4.8-10.8) K/uL RBC 4.66 (4.2-5.4) M/uL Hgb 14.4 (12.0-16.0) g/dL Hct 43.3 (37-47) % MCV 92.9 (80-100) fL MCH 30.9 (25-34) pg MCHC 33.3 (32-36) g/dL RDW Std Deviation 47.7 H (36.4-46.3) fL RDW Coeff of Carrie 14.2 (11.5-14.5) % Plt Count 122 L (130-400) K/uL MPV 11.1 H (7.4-10.4) fL Immature Gran % (Auto) 0.3 % Neut % (Auto) 87.2 % Lymph % (Auto) 6.8 % [place] % (Auto) 5.3 % Eos % (Auto) 0.2 % Baso % (Auto) 0.2 % Immature Gran # (Auto) 0.05 H (0.00-0.02) K/uL Neut # (Auto) 16.30 H (1.4-6.5) K/uL Lymph # (Auto) 1.28 (1.2-3.4) K/uL [place] # (Auto) 0.99 H (0.11-0.59) K/uL Eos # (Auto) 0.04 (0-0.5) K/uL Baso # (Auto) 0.03 (0-0.2) K/uL PT 10.7 (9.0-12.0) Seconds INR 1.1 (0.9-1.1) APTT 32.3 H (21.0-31.0) Seconds PTT Ratio 1.2 Sodium 141 (136-145) mmol/L Potassium 4.0 (3.5-5.1) mmol/L Chloride 107 (98-107) mmol/L Carbon Dioxide 26 (21-32) mmol/L Anion Gap 8.0 (3-11) BUN 35 H (7-18) mg/dl Creatinine 1.32 H (0.6-1.2) mg/dl Est Cr Clr Drug Dosing 35.4 ml/min Est GFR ( Amer) 44.7 Est GFR (Non-Af Amer) 38.5 BUN/Creatinine Ratio 26.4 H (10-20) Glucose 96 (70-99) mg/dl Calcium 8.9 (8.5-10.1) mg/dl Magnesium 2.3 (1.8-2.4) mg/dl Total Bilirubin 0.7 (0.2-1) mg/dl AST 57 H (15-37) U/L ALT 62 (12-78) U/L Alkaline Phosphatase 96 (45-117) U/L Total Creatine Kinase 259 H (26-192) U/L POC Troponin I (0-0.045) ng/ml Troponin I 1.760 H* (0-0.045) ng/ml Total Protein 7.5 (6.4-8.2) gm/dl Albumin 3.6 (3.4-5.0) gm/dl Globulin 3.9 (2.5-4.0) gm/dl Albumin/Globulin Ratio 0.9 (0.9-2) Lipase 72 L (73-393) U/L TSH 1.860 (0.300-4.500) uIu/ml Urine Color Urine Appearance (Clear) Urine pH (4.5-7.5) Ur Specific [place] (1.000-1.030) Urine Protein (Negative) Urine Glucose (UA) (Negative) Urine Ketones (Negative) Urine Blood (Negative) Urine Nitrite (Negative) Urine Bilirubin (Negative) Urine Urobilinogen (Negative) Ur Leukocyte Esterase (Negative) Urine WBC (Auto) (0-5) /hpf Urine RBC (Auto) (0-4) /hpf U Hyaline Cast (Auto) (0-5) /lpf U Epithel Cells (Auto) (0-5) /lpf Urine Bacteria (Auto) (Negative) Urine Opiates Screen (Neg) Ur Methadone, Qual (Neg) Urine Barbiturates (Neg) Ur Phencyclidine (PCP) (Neg) U Amphetamin/Meth Scrn (Neg) MDMA (Ecstasy) Screen (Neg) U Benzodiazepines Scrn (Neg) Ur Cocaine Metabolite (Neg) U Marijuana (THC) Screen (Neg) Medications Administered Current Inpatient Medications Heparin Sodium/Dextrose (Heparin Sodium/Dextrose) 25,000 units in 500 mls @ 25 mls/hr IV .Q20H [facility]; Protocol Stop: 12/12/18 23:28 Ioversol (Optiray 320 100ml) 89 ml IV ONCE PRN PRN Reason: Interaction Checking Stop: 11/16/18 22:34 Last Admin: 11/12/18 22:36 Dose: 1 ml Code Status & VTE Plan Code Status Full VTE Prophylaxis Plan VTE Prophylaxis will be ordered: Yes Supervising Physician Co-Signing Physician Notes Patient seen and examined, chart reviewed, case discussed with Dr. Mullins and I agree with her assessment and plan as documented above. Briefly, patient is a 77yo female presenting with abdominal pain, nausea and 4 episodes of large volume, green/watery diarrhea as well as weakness and dizziness. Patient denies CP but has some epigastric discomfort. EKG in the ER with possible AF. Patient with complaint of abdominal discomfort, bloating. On exam she is afebrile, hemodynamically stable, NAD Skin: no rash HEENT: slightly dry MM, neck supple Heart: +S1/S2, irregular, no m/r/g Lungs: CTA, no rales/rhonchi/wheezes Abd: +BS, hyperactive, soft, diffusely tender and distended with voluntary guarding Ext: no edema Labs and images reviewed. WBC=18.69, Ydd=544, BUN=35, Cr=1.32, Trop=1.76 CT Abdomen with fluid filled bowels Resident Activity Tracking Resident Involvement: Resident Care Provided Care Provided: Adult [facility] _ (1) Abdominal pain Abdominal location:
[2018-11-13] MEDS ORDERED: cefTRIAXone SODIUM 1,000 MG/50 ML BAG IV STA (00:45)
[2018-11-13] MEDS ORDERED: MoRPHine SULFATE 2 MG/ML CARP IV PRN (01:49)
[2018-11-13] MEDS ORDERED: POLYETHYLENE (MIRALAX) 17 GM PACK PO PRN (01:49)
[2018-11-13] MEDS ORDERED: ALUMINUM/MAGNESIUM SUSP 30 ML UDC PO PRN (01:49)
[2018-11-13] MEDS ORDERED: ONDANSETRON INJ 2 MG/ML 2 ML VIAL IV PRN (01:49)
[2018-11-13] MEDS ORDERED: DICYCLOMINE HCL 20 MG TAB PO PRN (01:49)
[2018-11-13] MEDS ORDERED: NITROGLYCERIN SL 0.4 MG/TAB TAB SL PRN (01:49)
[2018-11-13] MEDS ORDERED: MAGNESIUM HYDROXIDE SUSP 30 ML UDC PO PRN (01:49)
[2018-11-13] MEDS: SODIUM CHLORIDE 0.9% 1000ML 1,000 ML IV SCH ×2 (02:44→16:14)
[2018-11-13] MEDS: GABAPENTIN 300 MG CAP PO SCH ×3 (02:45→20:42)
[2018-11-13 03:20] LABS: Basophils # (auto) 0.04 K/uL (0-0.2); Basophils % (auto) 0.3 %; Eosinophils # (auto) 0.04 K/uL (0-0.5); Eosinophils % (auto) 0.3 %; Hematocrit (blood only) 38.4 % (37-47); Hemoglobin 12.5 g/dL (12.0-16.0); Immature Granulocytes # (auto) 0.06 K/uL (0.00-0.02); Immature Granulocytes % (auto) 0.4 %; Lymphocytes # (auto) 2.03 K/uL (1.2-3.4); Lymphocytes % (auto) 12.9 %; Mean Corpuscular Hgb Conc 32.6 g/dL (32-36); Mean Corpuscular Volume 92.3 fL (80-100); Mean Platelet Volume 10.6 fL (7.4-10.4); Monocytes % (auto) 6.4 %; Neutrophils # (auto) 12.54 K/uL (1.4-6.5); Neutrophils % (auto) 79.7 %; Platelet Count 108 K/uL (130-400); RDW Standard Deviation 47.4 fL (36.4-46.3); Red Blood Count 4.16 M/uL (4.2-5.4); White Blood Count 15.71 K/uL (4.8-10.8)
[2018-11-13 03:36] LABS: BUN Creatinine Ratio 27.7 (10-20); Creatinine Clr Calc Pharmacy 51.1 ml/min; Est GFR (African American) 58.2; Est GFR (Non-African American) 50.3
[2018-11-13 03:43] LABS: Troponin I 1.27 ng/ml (0-0.045)
[2018-11-13] MEDS: LEVOTHYROXINE SODIUM 125 MCG TABLET PO SCH (05:06)
[2018-11-13 06:29] LABS: Estimated Average Glucose 120 mg/dl
[2018-11-13 07:10] LABS: Partial Thromboplastin Time 53.1 Seconds (21.0-31.0)
--- NOTE | 2018-11-13 07:22 | XRay Report ---
XR KUB CLINICAL HISTORY: abdo distension pain COMPARISON STUDY: No previous studies for comparison. FINDINGS: The soft tissues, psoas shadows, renal outlines and intestinal gas pattern appear normal. T here is no evidence for bowel obstruction. No abnormal abdominal calcifications are seen. IMPRESSION: Normal study. The above report was generated using voice recognition software. It may contain grammatical, syntax or spelling errors. Electronically signed by: Abilio Ng M.D. 11/13/2018 7:20 AM
[2018-11-13] MEDS: FUROSEMIDE 20 MG TAB PO SCH (08:06)
[2018-11-13] MEDS: LOSARTAN POTASSIUM 50 MG TAB PO SCH (08:06)
[2018-11-13] MEDS: CALCIUM CARBONATE 500 MG CHEWABLE TAB PO SCH (08:06)
[2018-11-13] MEDS: SACCHAROMYCES BOULARDII 250 MG CAP PO SCH (08:07)
[2018-11-13] MEDS: AMLODIPINE BESYLATE 5 MG TAB PO SCH (08:07)
--- NOTE | 2018-11-13 09:26 | Cardiology Consultation ---
Date of Consultation November 13, 2018 Assessment & Plan (1) Elevated troponin: Her presentation is not consistent with an ACS. She has not experienced any anginal symptoms, and ECG shows no acute ischemic changes. Her troponin was mildly elevated with a peak of 1.76, which is likely due to her underlying gastroenteritis and ANDER. She does have an echocardiogram pending to further evaluate her LV wall motion and systolic function. Would not pursue any additional cardiovascular testing/intervention at this time. Recommend aggressive risk factor modification with optimal blood pressure and cholesterol control moving forward. Could also consider initiating low dose aspirin therapy. (2) EKG abnormality: Her ECG was initially interpreted as atrial fibrillation, but upon further review, her rhythm appears to be a normal sinus rhythm. There is no indication for anticoagulation therapy at this time. Supervising Physician Co-Signing Physician Notes Patient seen and examined. With the assessment above. We will continue to follow but I think this is primarily GI. Fernie Cedeno MD History of Present Illness Reason for Consultation: Elevated troponin, atrial fibrillation Requesting Physician: Dr. Mullins Attending Physician: Dr. Cedeno History of Present Illness Mrs. Ramirez is a 77-year-old female with a history of hypertension, hyperlipidemia, and COSMO who presented to the Emergency Department yesterday due to complaints of epigastric pain, diarrhea, and generalized fatigue. She states that Friday, she began to feel poorly with what she felt was the flu. She noted generalized weakness, fatigue, and some body aches. She also noted epigastric pain, gas, and bloating. She had a poor appetite and had very little PO intake. Yesterday, she had dark green diarrhea. She therefore went to an Urgent Care clinic for further evaluation and was advised to go to the Emergency Department. She was found to have a mildly elevated troponin of 1.76 on arrival, which has since trended down. ECG was interpreted by the system as atrial fibrillation, but upon further review appears to be sinus rhythm with PACs/PVCs. There were no acute ischemic changes on ECG. She was noted to have renal insufficiency with a rise in her BUN/creatinine to [address] showed fluid-filled nondilated loops of large and small bowel, consistent with diarrheal illness/gastroenteritis. She reports today that she is feeling somewhat better. She continues to have some abdominal discomfort. She denies any chest discomfort or other anginal type symptoms. She denies shortness of breath, orthopnea, PND, or edema. She denies palpitations, lightheadedness, syncope, or presyncope. She denies abnormal bleeding such as melena, hematochezia, or hematuria. She denies cerebrovascular symptoms. She denies cough, wheezing, fevers, or chills. Review of Systems: As noted in HPI. All other 10 point ROS are reviewed and otherwise negative at this time. PMH: 1. Hypertension 2. Dyslipidemia 3. COSMO - on CPAP 4. Hypothyroidism 5. GERD 6. Macular degeneration 7. Rheumatoid arthritis 8. Venous insufficiency 9. Diverticulosis 10. Urinary incontinence 11. Appendectomy 12. Cholecystectomy 13. Cataract surgery 14. Rotator cuff surgery 15. Total knee arthroplasty x2 16. LOLA/BSO 17. Tonsillectomy 18. Uvuloplasty Family history: Juan had a OH at the age of 60. Mother with history of CVA. Uncle with abdominal aneurysm. Sister and cousins with cerebral aneurysms. Brother from COPD and "heart problems." Social history: She is with 3 children and numerous grandchildren. She is retired. She smoked 1.5 ppd for 40 years; she quit in the early . No alcohol or illicit drug use. Allergies Allergy/AdvReac Type Severity Reaction Status Date / Time Penicillins Allergy Severe anaphylaxis Verified 11/13/18 00:17 moxifloxacin Allergy Unknown ITCHING, Verified 11/13/18 00:17 REDNESS codeine AdvReac Unknown dizzy Verified 11/13/18 00:17 cortisone AdvReac Unknown reddness Verified 11/13/18 00:17 in face. ephedrine AdvReac Unknown DIZZY Verified 11/13/18 00:17 Home Medications Home Medications Medication Instructions Recorded Confirmed Type Probiotic 1 dose PO DAILY 11/13/18 11/13/18 History acetaminophen 500 mg PO Q4 PRN 11/13/18 11/13/18 History amlodipine 5 mg PO DAILY 11/13/18 11/13/18 History biotin 1 mg PO DAILY 11/13/18 11/13/18 History calcium carbonate [Tums] 200 mg PO DAILY 11/13/18 11/13/18 History cholecalciferol (vitamin D3) 1,000 unit PO DAILY 11/13/18 11/13/18 History [Vitamin D3] clindamycin HCl 600 mg PO UD PRN 11/13/18 11/13/18 History docusate sodium [Colace] 100 mg PO HS 11/13/18 11/13/18 History furosemide 20 mg PO DAILY 11/13/18 11/13/18 History gabapentin 300 mg PO BID 11/13/18 11/13/18 History levothyroxine 125 mcg PO DAILY 11/13/18 11/13/18 History losartan 100 mg PO DAILY 11/13/18 11/13/18 History nizatidine 150 mg PO BID 11/13/18 11/13/18 History peg 400-propylene glycol [Systane 2 drp OPHTHALMIC (EYE) UD 11/13/18 11/13/18 History Ultra] vitamins A,C,R-ahdz-xeslbp 1 cap PO BID 11/13/18 11/13/18 History [PreserVision AREDS] white petrolatum-mineral oil 1 applic OPHTHALMIC (EYE) UD 11/13/18 11/13/18 History [Refresh P.M.] Patient History Medical History Hyponatremia (Acute) High blood pressure Social History Current Living Situation: Spouse Other Information That Helps Us Care for You: No Feels Safe at Home: Yes Safety Concerns: Feels Safe At This Time Smoking Status: Former smoker Smoking End Date: 1990 Hx Alcohol Use: No Hx Substance Use: No Beliefs That Will Affect Care: Zoroastrian Zoroastrian Beliefs: Amish Preferred Language: Slovak Communication Ability: Effective Instructor [employer] Required: No Physical Exam 2 Vital Signs (Past 24 Hours): Last Vital Signs Temp 37 C 11/13/18 08:15 Pulse 74 11/13/18 08:15 Resp 18 11/13/18 08:15 BP 160/82 H 11/13/18 08:15 Pulse Ox 94 11/13/18 08:15 Constitutional: Alert, oriented, in no acute distress HEENT: Head is atraumatic and normocephalic. EOMs intact. Sclera anicteric. Face is symmetric. No perioral cyanosis. Mucous membranes moist. Neck: Supple, no JVD, no carotid bruits Pulmonary: Normal respiratory effort, clear to auscultation bilaterally Cardiac: Regular rate and rhythm with occasional ectopy, normal S1 and S2, no gallops, no rubs, no murmurs Extremities: No clubbing, cyanosis, or edema. Pulses 2+ and symmetric Abdomen: Normal bowel sounds, soft, no abdominal mass palpated. Mildly tender upon palpation of the epigastric region Skin: Normal skin color, turgor, and pigmentation, no rash, no skin lesions Neurological: Oriented to person, place, and time Results & Data Laboratory Results Laboratory Results WBC 15.71 K/uL (4.8-10.8) H 11/13/18 03:10 RBC 4.16 M/uL (4.2-5.4) L 11/13/18 03:10 Hgb 12.5 g/dL (12.0-16.0) 11/13/18 03:10 Hct 38.4 % (37-47) 11/13/18 03:10 MCV 92.3 fL (80-100) 11/13/18 03:10 MCH 30.0 pg (25-34) 11/13/18 03:10 MCHC 32.6 g/dL (32-36) 11/13/18 03:10 RDW Std Deviation 47.4 fL (36.4-46.3) H 11/13/18 03:10 RDW Coeff of Carrie 14.0 % (11.5-14.5) 11/13/18 03:10 Plt Count 108 K/uL (130-400) L 11/13/18 03:10 MPV 10.6 fL (7.4-10.4) H 11/13/18 03:10 Immature Gran % (Auto) 0.4 % 11/13/18 03:10 Neut % (Auto) 79.7 % 11/13/18 03:10 Lymph % (Auto) 12.9 % 11/13/18 03:10 [place] % (Auto) 6.4 % 11/13/18 03:10 Eos % (Auto) 0.3 % 11/13/18 03:10 Baso % (Auto) 0.3 % 11/13/18 03:10 Immature Gran # (Auto) 0.06 K/uL (0.00-0.02) H 11/13/18 03:10 Neut # (Auto) 12.54 K/uL (1.4-6.5) H 11/13/18 03:10 Lymph # (Auto) 2.03 K/uL (1.2-3.4) 11/13/18 03:10 [place] # (Auto) 1.00 K/uL (0.11-0.59) H 11/13/18 03:10 Eos # (Auto) 0.04 K/uL (0-0.5) 11/13/18 03:10 Baso # (Auto) 0.04 K/uL (0-0.2) 11/13/18 03:10 PT 10.7 Seconds (9.0-12.0) 11/12/18 21:20 INR 1.1 (0.9-1.1) 11/12/18 21:20 APTT 53.1 Seconds (21.0-31.0) H* 11/13/18 06:09 PTT Ratio 2.0 11/13/18 06:09 Sodium 141 mmol/L (136-145) 11/13/18 03:10 Potassium 4.0 mmol/L (3.5-5.1) 11/13/18 03:10 Chloride 112 mmol/L (98-107) H 11/13/18 03:10 Carbon Dioxide 26 mmol/L (21-32) 11/13/18 03:10 Anion Gap 3.0 (3-11) 11/13/18 03:10 BUN 29 mg/dl (7-18) H 11/13/18 03:10 Creatinine 1.06 mg/dl (0.6-1.2) 11/13/18 03:10 Est Cr Clr Drug Dosing 51.1 ml/min 11/13/18 03:10 Est GFR ( Amer) 58.2 11/13/18 03:10 Est GFR (Non-Af Amer) 50.3 11/13/18 03:10 BUN/Creatinine Ratio 27.7 (10-20) H 11/13/18 03:10 Glucose 98 mg/dl (70-99) 11/13/18 03:10 Estimat Average Glucose 120 mg/dl 11/13/18 03:10 Hemoglobin A1c 5.8 % (4.5-5.6) H 11/13/18 03:10 Lactate 1.1 mmol/L (0.4-2.0) 11/13/18 03:10 Calcium 8.0 mg/dl (8.5-10.1) L 11/13/18 03:10 Magnesium 2.3 mg/dl (1.8-2.4) 11/12/18 21:20 Total Bilirubin 0.7 mg/dl (0.2-1) 11/12/18 21:20 AST 57 U/L (15-37) H 11/12/18 21:20 ALT 62 U/L (12-78) 11/12/18 21:20 Alkaline Phosphatase 96 U/L (45-117) 11/12/18 21:20 Total Creatine Kinase 259 U/L (26-192) H 11/12/18 21:20 POC Troponin I 1.19 ng/ml (0-0.045) H 11/12/18 22:19 Troponin I 1.270 ng/ml (0-0.045) H* 11/13/18 03:10 Total Protein 7.5 gm/dl (6.4-8.2) 11/12/18 21:20 Albumin 3.6 gm/dl (3.4-5.0) 11/12/18 21:20 Globulin 3.9 gm/dl (2.5-4.0) 11/12/18 21:20 Albumin/Globulin Ratio 0.9 (0.9-2) 11/12/18 21:20 Lipase 72 U/L (73-393) L 11/12/18 21:20 TSH 1.860 uIu/ml (0.300-4.500) 11/12/18 21:20 Urine Color Yellow 11/12/18 21:22 Urine Appearance Clear (Clear) 11/12/18 21:22 Urine pH 5.5 (4.5-7.5) 11/12/18 21:22 Ur Specific [place] 1.019 (1.000-1.030) 11/12/18 21:22 Urine Protein Trace (Negative) H 11/12/18 21:22 Urine Glucose (UA) Negative (Negative) 11/12/18 21:22 Urine Ketones 1+ (Negative) H 11/12/18 21:22 Urine Blood 1+ (Negative) H 11/12/18 21:22 Urine Nitrite Positive (Negative) H 11/12/18 21:22 Urine Bilirubin Negative (Negative) 11/12/18 21:22 Urine Urobilinogen Negative (Negative) 11/12/18 21:22 Ur Leukocyte Esterase Trace (Negative) H 11/12/18 21:22 Urine WBC (Auto) 10-30 /hpf (0-5) H 11/12/18 21:22 Urine RBC (Auto) 0-4 /hpf (0-4) 11/12/18 21:22 U Hyaline Cast (Auto) 1-5 /lpf (0-5) 11/12/18 21:22 U Epithel Cells (Auto) >30 /lpf (0-5) H 11/12/18 21:22 Urine Bacteria (Auto) 4+ (Negative) H 11/12/18 21:22 Stool Occult Bld Scrn Positive (Negative) H 11/13/18 06:30 Urine Opiates Screen Neg (Neg) 11/12/18 21:22 Ur Methadone, Qual Neg (Neg) 11/12/18 21:22 Urine Barbiturates Neg (Neg) 11/12/18 21:22 Ur Phencyclidine (PCP) Neg (Neg) 11/12/18 21:22 U Amphetamin/Meth Scrn Neg (Neg) 11/12/18 21:22 MDMA (Ecstasy) Screen Neg (Neg) 11/12/18 21:22 U Benzodiazepines Scrn Neg (Neg) 11/12/18 21:22 Ur Cocaine Metabolite Neg (Neg) 11/12/18 21:22 U Marijuana (THC) Screen Neg (Neg) 11/12/18 21:22 Diagnostic Findings ECGs reviewed and show sinus rhythm with PACs/PVCs. No acute ST-T wave abnormality. CXR: Mild cardiomegaly. No evidence for pulmonary edema. Abdomen and Pelvis CT with IV contrast: 1. No bowel wall thickening or obstruction. 2. Fluid-filled nondilated loops of large and small bowel. This can be seen the setting of a diarrheal illness/gastroenteritis. 3. Cholecystectomy and appendectomy. 4. Hysterectomy. 5. Colonic diverticulosis. 6. Moderate bladder wall thickening. This could be due to underdistention. Recommend correlation with urinalysis. 7. Bilateral renal hypodense lesions as described above. KUB x-ray: Normal study. Echocardiogram pending. Telemetry: Normal sinus rhythm.
[2018-11-13] MEDS: PANTOprazole 40 MG in DEXTROSE 5% 100 ML IV SCH ×4 (10:29→23:54)
[2018-11-13 10:56] LABS: Hematocrit (blood only) 38.2 % (37-47); Hemoglobin 12.5 g/dL (12.0-16.0)
--- NOTE | 2018-11-13 13:31 | Gastrointestinal Consultation ---
Date of Consultation November 13, 2018 Assessment & Plan (1) Melena: Ms. Cait Ramirez is a 77 yr old female with epigastric discomfort though not severe, also with one dark stool ("real dark brown") BM, occult positive stool, elevated BUN, some diarrhea a few days ago and need for anticoagulation for new A-fib. Differentials considered are gastroenteritis, gastritis, esophagitis, ulcer disease. she does not have a hemodynamically significant GI bleed. Agree with protonix drip, watch Hb/Hct, BUN and stool outputs. Would check stool for C-diff. Will plan for eventual EGD, Colonoscopy after cardiac event is ruled out ( elevated troponins and CK) and A-fib is stabilized. This could be done early next week if she remains as an IP, but because Hb is normal and no rapid gross GI bleeding, not emergent. (2) Epigastric pain: Supervising Physician Co-Signing Physician Notes Late entry: Patient was seen and examined on 11/13 with SIDNEY Romo whose note reflects our findings and plan. History of Present Illness Reason for Consultation: melena, occult positive stool Requesting Physician: Dr. Rosenbaum Attending Physician: Janessa Valles MD History of Present Illness Ms. Cait Ramirez is a 77 yr old female with a hx of GERD on Axid, COSMO, hypothyroidism, CAD with prior STEMI who presented to the ED on for upper abdomen discomfort since Friday, diarrhea, nausea but no vomiting On arrival, she was found to be in A-fib and a heparin drip was initiated. She had 3-4 episodes of diarrhea on Friday but no further BM until this morning when she passed a "very dark brown" loose BM that tested hemmocult positive. Because she is in new a-fib and anticoagulation is planned, GI was consulted for melena. Her Hb has remained normal at 12 (down from 14 on arrival). her most recent Colonoscopy was done by Dr. Rapp ([place]) and she believes this was 2 -3 yrs ago. An EGD was also done at the same time (she believes for GERD, but unsure) and she was told that results were normal and that she no longer needed to undergo endoscopy. She is now awake, alert, oriented, easily getting in and out of bed and introduced me to her granddaughter who is visiting. Allergies Allergy/AdvReac Type Severity Reaction Status Date / Time Penicillins Allergy Severe anaphylaxis Verified 11/13/18 00:17 moxifloxacin Allergy Unknown ITCHING, Verified 11/13/18 00:17 REDNESS codeine AdvReac Unknown dizzy Verified 11/13/18 00:17 cortisone AdvReac Unknown reddness Verified 11/13/18 00:17 in face. ephedrine AdvReac Unknown DIZZY Verified 11/13/18 00:17 Home Medications Home Medications Medication Instructions Recorded Confirmed Type Probiotic 1 dose PO DAILY 11/13/18 11/13/18 History acetaminophen 500 mg PO Q4 PRN 11/13/18 11/13/18 History amlodipine 5 mg PO DAILY 11/13/18 11/13/18 History biotin 1 mg PO DAILY 11/13/18 11/13/18 History calcium carbonate [Tums] 200 mg PO DAILY 11/13/18 11/13/18 History cholecalciferol (vitamin D3) 1,000 unit PO DAILY 11/13/18 11/13/18 History [Vitamin D3] clindamycin HCl 600 mg PO UD PRN 11/13/18 11/13/18 History docusate sodium [Colace] 100 mg PO HS 11/13/18 11/13/18 History furosemide 20 mg PO DAILY 11/13/18 11/13/18 History gabapentin 300 mg PO BID 11/13/18 11/13/18 History levothyroxine 125 mcg PO DAILY 11/13/18 11/13/18 History losartan 100 mg PO DAILY 11/13/18 11/13/18 History nizatidine 150 mg PO BID 11/13/18 11/13/18 History peg 400-propylene glycol [Systane 2 drp OPHTHALMIC (EYE) UD 11/13/18 11/13/18 History Ultra] vitamins A,C,Y-onwd-hgendc 1 cap PO BID 11/13/18 11/13/18 History [PreserVision AREDS] white petrolatum-mineral oil 1 applic OPHTHALMIC (EYE) UD 11/13/18 11/13/18 History [Refresh P.M.] Patient History Medical History Hyponatremia (Acute) High blood pressure Social History Current Living Situation: Spouse Other Information That Helps Us Care for You: No Feels Safe at Home: Yes Safety Concerns: Feels Safe At This Time Smoking Status: Former smoker Smoking End Date: 1990 Hx Alcohol Use: No Hx Substance Use: No Beliefs That Will Affect Care: Anabaptism Anabaptism Beliefs: Mormon Preferred Language: Andorran Communication Ability: Effective Publications Inspector Required: No Review of Systems Gen: Denies fever, weakness, weight loss. Eyes: no vision changes, no eye redness or pain Respiratory: No SOB, no cough Cardiovascular: No irregular heartbeats or chest pain Abdomen: + diarrhea, moderate epigastric discomfort, no nausea/vomiting Ext: No edema Hem: No excessive bruising/bleeding Physical Exam 2 Vital Signs (Past 24 Hours): Last Vital Signs Temp 36.6 C 11/13/18 12:31 Pulse 71 11/13/18 12:31 Resp 18 11/13/18 12:31 BP 151/73 H 11/13/18 12:31 Pulse Ox 95 11/13/18 12:31 Constitutional: WD/WN, vitals as above well nourished, cooperative and + overweight Eyes: PERRL, conjunctivae normal, anicteric sclerae ENMT: external ear and nose normal, oropharynx normal Neck: trachea midline, no thyromegaly Respiratory: normal respiratory effort, lungs clear to auscultation Cardiovascular: Rate/Rhythm: regular rate and regular rhythm Heart Sounds: + murmur (2/6 systolic murmur) Vessels: no JVD Gastrointestinal (Abdomen): normal bowel sounds, soft, nontender, no hepatosplenomegaly Musculoskeletal: no cyanosis or clubbing, extremities motor strength 5/5 Skin: no rashes, warm and dry Neurologic: patellar DTR's 2+ bilat, sensation intact Psychiatric: A+Ox3, euthymic affect Results & Data Laboratory Results BUn 35 on arrival, 25 now WBC 18->15, Hb 14->12 AST 57, other LFTs normal Lipase 72 Troponins elevated Urine with blood and nitrites Diagnostic Findings CT abd/pelvis with IV contrast 11/12/18: 1. No bowel wall thickening or obstruction. 2. Fluid-filled nondilated loops of large and small bowel. This can be seen the setting of a diarrheal illness/gastroenteritis. 3. Cholecystectomy and appendectomy. 4. Hysterectomy. 5. Colonic diverticulosis. 6. Moderate bladder wall thickening. This could be due to underdistention. Recommend correlation with urinalysis. 7. Bilateral renal hypodense lesions as described above. KUB 11/13 normal Medications Administered Heparin Cephtriaxone Protonix drip
--- NOTE | 2018-11-13 14:38 | Family Medicine Progress Note ---
Date of Service November 13, 2018 Assessment & Plan (1) Atrial fibrillation, new onset: 77yo F with PMH COPD (no meds), COSMO, hypothyroid, GERD, tobacco abuse ( former, 50 yr pack/hx) presents with abdominal pain and diarrhea, found to have new Afib with an elevated trop. 1) GI bleeding - Melena -reported dark stool this AM, FOBT positive. Cont monitor stools -stable h/h. Cont monitor -Protonix drip -d/c hep drip -NPO -C.dif, stool culture pending -GI consult: Will plan for eventual EGD, Colonoscopy. This could be done early next week, but because Hb is normal and no rapid gross GI bleeding, not emergent 2) Elevated trops -Heparin drip d/c 2/2 ?GI bleed as above -Trops downtrending (peak 1.76) -TSH WNL -Lipid pending. A1c 5.8 -NPO as above -Cardiology consult: No indication for anticoagulation therapy at this time. Trops likely due to her underlying gastroenteritis and ANDER. Echocardiogram pending to further evaluate her LV wall motion and systolic function. Would not pursue any additional cardiovascular testing/intervention at this time 3) Abdominal pain -improved since admission -Likely gastroenteritis vs. gastritis vs ulcer -lactate normal -KUB - normal -Bentyl for cramps -Gentle rehydration NSS at 80 -Probiotic -Prentiss diet once diet reinstated 4) HTN -Continue home meds 5) Hypothyroid -Cont home meds 6) COSMO -Set up CPAP FULL DVT Prophlaxis: SCD's Dispo: Tele Supervising Physician Co-Signing Physician Notes Resident Physician Supervision Note: I independently interviewed and examined the patient and verified the mcintosh history and physical, reviewed labs and image studies, discussed the case with the resident Dr. Rosenbaum and agree with the findings and care plan. Subjective 77 y/o F found in bed this AM in NAD. Reports no acute events since her admission. Reports one BM earlier in day that was dark in color. No other issues voiding. Pt is NPO. Pt able to ambulate without issue. Pt has no other acute concerns or complaints. Review of Systems All systems reviewed & are unremarkable except as noted in HPI & below Physical Exam 2 Vital Signs (Past 24 Hours): Last Vital Signs Temp 36.6 C 02/15/19 12:31 Pulse 71 11/13/18 12:31 Resp 18 11/13/18 12:31 BP 151/73 H 11/13/18 12:31 Pulse Ox 95 11/13/18 12:31 Constitutional: WD/WN, vitals as above Eyes: PERRL, conjunctivae normal, anicteric sclerae ENMT: external ear and nose normal, oropharynx normal Respiratory: normal respiratory effort, lungs clear to auscultation Cardiovascular: RRR, no murmur, no edema Gastrointestinal (Abdomen): normal bowel sounds, soft, nontender, no hepatosplenomegaly Skin: no rashes, warm and dry Psychiatric: A+Ox3, euthymic affect Results & Data Laboratory Results Laboratory Results - last 24 hr 11/12/18 11/12/18 11/12/18 21:20 21:20 21:20 WBC 18.69 H RBC 4.66 Hgb 14.4 Hct 43.3 MCV 92.9 MCH 30.9 MCHC 33.3 RDW Std Deviation 47.7 H RDW Coeff of Carrie 14.2 Plt Count 122 L MPV 11.1 H Immature Gran % (Auto) 0.3 Neut % (Auto) 87.2 Lymph % (Auto) 6.8 Moody % (Auto) 5.3 Eos % (Auto) 0.2 Baso % (Auto) 0.2 Immature Gran # (Auto) 0.05 H Neut # (Auto) 16.30 H Lymph # (Auto) 1.28 Moody # (Auto) 0.99 H Eos # (Auto) 0.04 Baso # (Auto) 0.03 PT 10.7 INR 1.1 APTT 32.3 H PTT Ratio 1.2 Sodium 141 Potassium 4.0 Chloride 107 Carbon Dioxide 26 Anion Gap 8.0 BUN 35 H Creatinine 1.32 H Est Cr Clr Drug Dosing 35.4 Est GFR ( Amer) 44.7 Est GFR (Non-Af Amer) 38.5 BUN/Creatinine Ratio 26.4 H Glucose 96 Estimat Average Glucose Hemoglobin A1c Lactate Calcium 8.9 Magnesium 2.3 Total Bilirubin 0.7 AST 57 H ALT 62 Alkaline Phosphatase 96 Total Creatine Kinase 259 H POC Troponin I Troponin I 1.760 H* Total Protein 7.5 Albumin 3.6 Globulin 3.9 Albumin/Globulin Ratio 0.9 Lipase 72 L TSH 1.860 Urine Color Urine Appearance Urine pH Ur Specific [place] Urine Protein Urine Glucose (UA) Urine Ketones Urine Blood Urine Nitrite Urine Bilirubin Urine Urobilinogen Ur Leukocyte Esterase Urine WBC (Auto) Urine RBC (Auto) U Hyaline Cast (Auto) U Epithel Cells (Auto) Urine Bacteria (Auto) Stool Occult Bld Scrn Stl C. diff Tox B Gene Urine Opiates Screen Ur Methadone, Qual Urine Barbiturates Ur Phencyclidine (PCP) U Amphetamin/Meth Scrn MDMA (Ecstasy) Screen U Benzodiazepines Scrn Ur Cocaine Metabolite U Marijuana (THC) Screen 11/12/18 11/12/18 11/12/18 21:22 21:22 22:19 WBC RBC Hgb Hct MCV MCH MCHC RDW Std Deviation RDW Coeff of Carrie Plt Count MPV Immature Gran % (Auto) Neut % (Auto) Lymph % (Auto) Moody % (Auto) Eos % (Auto) Baso % (Auto) Immature Gran # (Auto) Neut # (Auto) Lymph # (Auto) Moody # (Auto) Eos # (Auto) Baso # (Auto) PT INR APTT PTT Ratio Sodium Potassium Chloride Carbon Dioxide Anion Gap BUN Creatinine Est Cr Clr Drug Dosing Est GFR ( Amer) Est GFR (Non-Af Amer) BUN/Creatinine Ratio Glucose Estimat Average Glucose Hemoglobin A1c Lactate Calcium Magnesium Total Bilirubin AST ALT Alkaline Phosphatase Total Creatine Kinase POC Troponin I 1.19 H Troponin I Total Protein Albumin Globulin Albumin/Globulin Ratio Lipase TSH Urine Color Yellow Urine Appearance Clear Urine pH 5.5 Ur Specific [place] 1.019 Urine Protein Trace H Urine Glucose (UA) Negative Urine Ketones 1+ H Urine Blood 1+ H Urine Nitrite Positive H Urine Bilirubin Negative Urine Urobilinogen Negative Ur Leukocyte Esterase Trace H Urine WBC (Auto) 10-30 H Urine RBC (Auto) 0-4 U Hyaline Cast (Auto) 1-5 U Epithel Cells (Auto) >30 H Urine Bacteria (Auto) 4+ H Stool Occult Bld Scrn Stl C. diff Tox B Gene Urine Opiates Screen Neg Ur Methadone, Qual Neg Urine Barbiturates Neg Ur Phencyclidine (PCP) Neg U Amphetamin/Meth Scrn Neg MDMA (Ecstasy) Screen Neg U Benzodiazepines Scrn Neg Ur Cocaine Metabolite Neg U Marijuana (THC) Screen Neg 11/13/18 11/13/18 11/13/18 03:10 03:10 03:10 WBC 15.71 H RBC 4.16 L Hgb 12.5 Hct 38.4 MCV 92.3 MCH 30.0 MCHC 32.6 RDW Std Deviation 47.4 H RDW Coeff of Carrie 14.0 Plt Count 108 L MPV 10.6 H Immature Gran % (Auto) 0.4 Neut % (Auto) 79.7 Lymph % (Auto) 12.9 Moody % (Auto) 6.4 Eos % (Auto) 0.3 Baso % (Auto) 0.3 Immature Gran # (Auto) 0.06 H Neut # (Auto) 12.54 H Lymph # (Auto) 2.03 Moody # (Auto) 1.00 H Eos # (Auto) 0.04 Baso # (Auto) 0.04 PT INR APTT PTT Ratio Sodium 141 Potassium 4.0 Chloride 112 H Carbon Dioxide 26 Anion Gap 3.0 BUN 29 H Creatinine 1.06 Est Cr Clr Drug Dosing 51.1 Est GFR ( Amer) 58.2 Est GFR (Non-Af Amer) 50.3 BUN/Creatinine Ratio 27.7 H Glucose 98 Estimat Average Glucose Hemoglobin A1c Lactate 1.1 Calcium 8.0 L Magnesium Total Bilirubin AST ALT Alkaline Phosphatase Total Creatine Kinase POC Troponin I Troponin I 1.270 H* Total Protein Albumin Globulin Albumin/Globulin Ratio Lipase TSH Urine Color Urine Appearance Urine pH Ur Specific [place] Urine Protein Urine Glucose (UA) Urine Ketones Urine Blood Urine Nitrite Urine Bilirubin Urine Urobilinogen Ur Leukocyte Esterase Urine WBC (Auto) Urine RBC (Auto) U Hyaline Cast (Auto) U Epithel Cells (Auto) Urine Bacteria (Auto) Stool Occult Bld Scrn Stl C. diff Tox B Gene Urine Opiates Screen Ur Methadone, Qual Urine Barbiturates Ur Phencyclidine (PCP) U Amphetamin/Meth Scrn MDMA (Ecstasy) Screen U Benzodiazepines Scrn Ur Cocaine Metabolite U Marijuana (THC) Screen 11/13/18 11/13/18 11/13/18 03:10 06:09 06:30 WBC RBC Hgb Hct MCV MCH MCHC RDW Std Deviation RDW Coeff of Carrie Plt Count MPV Immature Gran % (Auto) Neut % (Auto) Lymph % (Auto) Moody % (Auto) Eos % (Auto) Baso % (Auto) Immature Gran # (Auto) Neut # (Auto) Lymph # (Auto) Moody # (Auto) Eos # (Auto) Baso # (Auto) PT INR APTT 53.1 H* PTT Ratio 2.0 Sodium Potassium Chloride Carbon Dioxide Anion Gap BUN Creatinine Est Cr Clr Drug Dosing Est GFR ( Amer) Est GFR (Non-Af Amer) BUN/Creatinine Ratio Glucose Estimat Average Glucose 120 Hemoglobin A1c 5.8 H Lactate Calcium Magnesium Total Bilirubin AST ALT Alkaline Phosphatase Total Creatine Kinase POC Troponin I Troponin I Total Protein Albumin Globulin Albumin/Globulin Ratio Lipase TSH Urine Color Urine Appearance Urine pH Ur Specific [place] Urine Protein Urine Glucose (UA) Urine Ketones Urine Blood Urine Nitrite Urine Bilirubin Urine Urobilinogen Ur Leukocyte Esterase Urine WBC (Auto) Urine RBC (Auto) U Hyaline Cast (Auto) U Epithel Cells (Auto) Urine Bacteria (Auto) Stool Occult Bld Scrn Stl C. diff Tox B Gene Neg C.diff Toxin B Urine Opiates Screen Ur Methadone, Qual Urine Barbiturates Ur Phencyclidine (PCP) U Amphetamin/Meth Scrn MDMA (Ecstasy) Screen U Benzodiazepines Scrn Ur Cocaine Metabolite U Marijuana (THC) Screen 11/13/18 11/13/18 11/13/18 06:30 09:15 10:26 WBC RBC Hgb 12.5 Hct 38.2 MCV MCH MCHC RDW Std Deviation RDW Coeff of Carrie Plt Count MPV Immature Gran % (Auto) Neut % (Auto) Lymph % (Auto) Moody % (Auto) Eos % (Auto) Baso % (Auto) Immature Gran # (Auto) Neut # (Auto) Lymph # (Auto) Moody # (Auto) Eos # (Auto) Baso # (Auto) PT INR APTT PTT Ratio Sodium Potassium Chloride Carbon Dioxide Anion Gap BUN Creatinine Est Cr Clr Drug Dosing Est GFR ( Amer) Est GFR (Non-Af Amer) BUN/Creatinine Ratio Glucose Estimat Average Glucose Hemoglobin A1c Lactate Calcium Magnesium Total Bilirubin AST ALT Alkaline Phosphatase Total Creatine Kinase POC Troponin I Troponin I 0.937 H* Total Protein Albumin Globulin Albumin/Globulin Ratio Lipase TSH Urine Color Urine Appearance Urine pH Ur Specific [place] Urine Protein Urine Glucose (UA) Urine Ketones Urine Blood Urine Nitrite Urine Bilirubin Urine Urobilinogen Ur Leukocyte Esterase Urine WBC (Auto) Urine RBC (Auto) U Hyaline Cast (Auto) U Epithel Cells (Auto) Urine Bacteria (Auto) Stool Occult Bld Scrn Positive H Stl C. diff Tox B Gene Urine Opiates Screen Ur Methadone, Qual Urine Barbiturates Ur Phencyclidine (PCP) U Amphetamin/Meth Scrn MDMA (Ecstasy) Screen U Benzodiazepines Scrn Ur Cocaine Metabolite U Marijuana (THC) Screen Medications Administered Current Inpatient Medications Acetaminophen (Tylenol) 650 mg PO Q4H PRN PRN Reason: Pain or Fever Stop: 12/13/18 01:48 Al Hydrox/Mg Hydrox/Simethicone (Maalox) 15 ml PO Q4H PRN PRN Reason: Dyspepsia Stop: 12/13/18 01:48 Amlodipine Besylate (Norvasc) 5 mg PO DAILY ARISTIDES Stop: 12/13/18 08:59 Last Admin: 11/13/18 08:07 Dose: 5 mg Calcium Carbonate (Tums) 500 mg PO DAILY ARISTIDES Stop: 12/13/18 08:59 Last Admin: 11/13/18 08:06 Dose: 500 mg Dicyclomine HCl (Bentyl) 20 mg PO QID PRN PRN Reason: Cramping Stop: 12/13/18 01:48 Docusate Sodium (Colace) 100 mg PO HS [facility] Stop: 12/13/18 20:59 Furosemide (Lasix) 20 mg PO DAILY ARISTIDES Stop: 12/13/18 08:59 Last Admin: 11/13/18 08:06 Dose: 20 mg Gabapentin (Neurontin) 300 mg PO BID ARISTIDES Stop: 12/13/18 01:44 Last Admin: 11/13/18 08:07 Dose: 300 mg Sodium Chloride (Nss 1000ml) 1,000 mls @ 80 mls/hr IV .[id number] ARISTIDES Stop: 12/13/18 01:48 Last Admin: 11/13/18 02:44 Dose: 80 mls/hr Pantoprazole Sodium 40 mg/ (Dextrose) 100 mls @ 20 mls/hr IV Q5H [facility]STIDES Stop: 12/13/18 09:59 Last Admin: 11/13/18 10:29 Dose: 8 mg/hr, 20 mls/hr Levothyroxine Sodium (Synthroid) 125 mcg PO DAILYBB ARISTIDES Stop: 12/13/18 06:29 Last Admin: 11/13/18 05:06 Dose: 125 mcg Losartan Potassium (Cozaar) 100 mg PO DAILY ARISTIDES Stop: 12/13/18 08:59 Last Admin: 11/13/18 08:06 Dose: 100 mg Magnesium Hydroxide (Milk Of Magnesia) 30 ml PO Q12H PRN PRN Reason: Constipation Stop: 12/13/18 01:48 Morphine Sulfate (Morphine Sulfate) 2 mg IV Q30M PRN PRN Reason: Chest Pain Stop: 11/27/18 01:48 Nitroglycerin (Nitrostat) 0.4 mg SL UD PRN PRN Reason: Chest Pain Stop: 12/13/18 01:48 Ondansetron HCl (Zofran) 4 mg IV Q6H PRN PRN Reason: Nausea Stop: 12/13/18 01:48 Polyethylene Glycol (Miralax Powder Packet) 17 gm PO DAILY PRN PRN Reason: Constipation Stop: 12/13/18 01:48 Saccharomyces Boulardii (Florastor) 250 mg PO DAILY ARISTIDES Stop: 12/13/18 08:59 Last Admin: 11/13/18 08:07 Dose: 250 mg Resident Activity Tracking Resident Involvement: Resident Care Provided Care Provided: Adult Hospital Medicine
[2018-11-13] MEDS: ACETAMINOPHEN 325 MG TAB PO PRN (18:29)
[2018-11-13] MEDS ORDERED: DOCUSATE SODIUM 100 MG CAP PO SCH (21:00)
[2018-11-14] MEDS: SODIUM CHLORIDE 0.9% 1000ML 1,000 ML IV SCH (02:13)
[2018-11-14] MEDS: ACETAMINOPHEN 325 MG TAB PO PRN ×2 (03:41→08:36)
[2018-11-14] MEDS: PANTOprazole 40 MG in DEXTROSE 5% 100 ML IV SCH ×2 (04:43→10:21)
[2018-11-14] MEDS: LEVOTHYROXINE SODIUM 125 MCG TABLET PO SCH (06:09)
[2018-11-14 07:33] LABS: Basophils # (auto) 0.03 K/uL (0-0.2); Basophils % (auto) 0.4 %; Eosinophils # (auto) 0.13 K/uL (0-0.5); Eosinophils % (auto) 1.9 %; Hematocrit (blood only) 37.5 % (37-47); Hemoglobin 12.1 g/dL (12.0-16.0); Immature Granulocytes # (auto) 0.02 K/uL (0.00-0.02); Immature Granulocytes % (auto) 0.3 %; Lymphocytes # (auto) 1.49 K/uL (1.2-3.4); Lymphocytes % (auto) 21.8 %; Mean Corpuscular Hgb Conc 32.3 g/dL (32-36); Mean Corpuscular Volume 92.4 fL (80-100); Mean Platelet Volume 10.6 fL (7.4-10.4); Monocytes # (auto) 0.64 K/uL (0.11-0.59); Monocytes % (auto) 9.3 %; Neutrophils # (auto) 4.54 K/uL (1.4-6.5); Neutrophils % (auto) 66.3 %; Platelet Count 115 K/uL (130-400); RDW Coefficient of Variation 13.6 % (11.5-14.5); RDW Standard Deviation 46.3 fL (36.4-46.3); Red Blood Count 4.06 M/uL (4.2-5.4); White Blood Count 6.85 K/uL (4.8-10.8)
[2018-11-14 07:34] LABS: Albumin Globulin Ratio 0.9 (0.9-2); Albumin Level 3.2 gm/dl (3.4-5.0); BUN Creatinine Ratio 15.9 (10-20); Bilirubin,Total 0.6 mg/dl (0.2-1); Calcium 8.3 mg/dl (8.5-10.1); Creatinine Clr Calc Pharmacy 54.7 ml/min; Est GFR (African American) 63.3; Est GFR (Non-African American) 54.6; Globulin 3.6 gm/dl (2.5-4.0); Potassium 3.9 mmol/L (3.5-5.1); Total Protein 6.8 gm/dl (6.4-8.2)
[2018-11-14 07:41] LABS: Partial Thromboplastin Ratio 1.1; Partial Thromboplastin Time 27.5 Seconds (21.0-31.0)
--- NOTE | 2018-11-14 08:18 | Gastroenterology Progress Note ---
Date of Service November 14, 2018 Assessment & Plan (1) Melena: Ms. Cait Ramirez is a 77 yr old female admitted with epigastric discomfort found to have elevated cardiac enzymes as well as new onset of AF> This may explain her Gi symptoms. Reported one dark BM the AM of admission. Occult + stool. no keanu blood. H/H is stable. BUN normal today. - If primary service would like endoscopic evaluation given need for anticoagulation, this can be arranged early next week wither as an in or outpatient once she has been stabilized from cardiac standpoint. - Oral PPI. - Diet per primary service. (2) Epigastric pain: Subjective Feeling OK this AM. No abd pain. C diff negative. No BM. H/H is stable. Physical Exam 2 Vital Signs (Past 24 Hours): Last Vital Signs Temp 36.9 C 11/14/18 07:00 Pulse 52 L 11/14/18 07:00 Resp 16 11/14/18 07:00 BP 160/75 H 11/14/18 07:00 Pulse Ox 93 11/14/18 07:00 Constitutional: WD/WN, vitals as above well nourished, cooperative and + overweight Eyes: PERRL, conjunctivae normal, anicteric sclerae ENMT: external ear and nose normal, oropharynx normal Neck: trachea midline, no thyromegaly Respiratory: normal respiratory effort, lungs clear to auscultation Cardiovascular: Rate/Rhythm: regular rate and regular rhythm Heart Sounds: + murmur (2/6 systolic murmur) Vessels: no JVD Gastrointestinal (Abdomen): normal bowel sounds, soft, nontender, no hepatosplenomegaly Musculoskeletal: no cyanosis or clubbing, extremities motor strength 5/5 Skin: no rashes, warm and dry Neurologic: patellar DTR's 2+ bilat, sensation intact Psychiatric: A+Ox3, euthymic affect
[2018-11-14] MEDS: LOSARTAN POTASSIUM 50 MG TAB PO SCH (08:32)
[2018-11-14] MEDS: GABAPENTIN 300 MG CAP PO SCH (08:32)
[2018-11-14] MEDS: AMLODIPINE BESYLATE 5 MG TAB PO SCH (08:32)
[2018-11-14] MEDS: FUROSEMIDE 20 MG TAB PO SCH (08:33)
[2018-11-14] MEDS: CALCIUM CARBONATE 500 MG CHEWABLE TAB PO SCH (08:33)
[2018-11-14] MEDS: SACCHAROMYCES BOULARDII 250 MG CAP PO SCH (08:33)
--- NOTE | 2018-11-14 11:15 | CT Scan Report ---
CT OF THE HEAD WITHOUT CONTRAST CLINICAL HISTORY: Headache. COMPARISON STUDY: MRI of the brain February 01, 2016. CT DOSE: 537.48 mGy.cm TECHNIQUE: Helical axial images of the head were obtained without IV contrast. Automated exposure con trol was utilized for the study. A dose lowering technique was utilized adhering to the principles o f ALARA. FINDINGS: No acute intracranial hemorrhage, midline shift or mass effect is present. Ventricular syst em is normal. Basilar cisterns are patent. There are no extra-axial collections. There are no finding s to suggest acute dural sinus thrombosis or acute territorial infarct. There are no significant calv arial abnormalities. There are postoperative findings within the sinuses with minimal sinus mucosal t hickening. IMPRESSION: No acute intracranial findings. Electronically signed by: Afshin Sandra M.D. 11/14/2018 11:14 AM
--- NOTE | 2018-11-14 12:19 | Discharge Summary ---
Date of Service November 14, 2018 Admission HPI Per Admitting Provider Rosa is a pleasant 77yo F who presents with acute onset epigastric pain which started 2 days ago. She notes it was associated with some weakness, fatigue, "not feeling herself", nausea, and she did have some diarrhea today which she noted was runny and dark green, almost black. She has not had an appetite, has been drinking water, but has not eaten anything x 2 days, though she did try chicken broth but it did not sit well with her. She denies vomiting, lightheadedness, dizziness, chest pain, dyspnea, diaphoresis, palpitations. She denies eating anything abnormal that would induce diarrhea. In the ER, it was noted on EKG that she was in atrial fibrillation, normal rate , with otherwise normal EKG. It was also noted that her troponin was elevated at 1.76, with POC repeat of 1.19. Other findings include: elevated WBC of 19, low platelets of 122, and elevated Cr at 1.32. Her CK was mildly elevated at 259. She is a previous smoker with 50pk year history. Family history of aneurysms and strokes at young ages, father had TN in his 60s. Ct [facility]do was overall unremarkable aside from some evidence of gastroenteritis. Principal Diagnosis gastritis Discharge Exam Constitutional WD/WN, vitals as above Eyes PERRL, conjunctivae normal, anicteric sclerae ENMT external ear and nose normal, oropharynx normal Respiratory normal respiratory effort, lungs clear to auscultation Cardiovascular RRR, no murmur, no edema Gastrointestinal (Abdomen) normal bowel sounds, soft, nontender, no hepatosplenomegaly Skin no rashes, warm and dry Psychiatric A+Ox3, euthymic affect Discharge Data Allergies Allergy/AdvReac Type Severity Reaction Status Date / Time Penicillins Allergy Severe anaphylaxis Verified 11/13/18 00:17 moxifloxacin Allergy Unknown ITCHING, Verified 11/13/18 00:17 REDNESS codeine AdvReac Unknown dizzy Verified 11/13/18 00:17 cortisone AdvReac Unknown reddness Verified 11/13/18 00:17 in face. ephedrine AdvReac Unknown DIZZY Verified 11/13/18 00:17 Consultations 11/12/18 23:18 ED Decision to Admit Stat 11/13/18 01:49 Consult Cardiology Routine 11/13/18 09:46 Consult Gastroenterology Routine Ordered Studies 11/12/18 21:59 CT abd pelvis IV con only Stat 11/14/18 09:13 CT head/brain wo con Routine Hospital Course (1) Atrial fibrillation, new onset: 77yo F with PMH COPD (no meds), COSMO, hypothyroid, GERD, tobacco abuse ( former, 50 yr pack/hx) presented to [facility] 11/13 with acute onset epigastric pain that started 2 days prior. Associated with some weakness, fatigue, nausea, some diarrhea earlier in the day which was runny and dark green/almost black, decreased appetite(had not eaten anything x 2 days prior). In the ER, it was noted on EKG that she was in atrial fibrillation, normal rate , with otherwise normal EKG, troponin was elevated at 1.76. Other findings included: elevated WBC of 19, low platelets of 122, and elevated Cr at 1.32, TSH normal. Family history of aneurysms and strokes at young ages, father had TN in his 60s. Ct Abd was overall unremarkable aside from some evidence of gastroenteritis. Pt was started on heparin gtt and admitted for what was believed to be new onset afib initally. The following is the medical management during her stay here. In discussing the case with cardiology, her ECG was initially interpreted as atrial fibrillation, but upon further review, her rhythm appeared to be a normal sinus rhythm and there was no indication for anticoagulation therapy. That AM, pt reported one BM that was dark colored and FOBT came back positive as well. Pt was d/c on heparin gtt and placed on PPI drip and GI was consulted. H/H was stable and it was not seen as an emergent GI bleed. They recommended plan for eventual EGD, Colonoscopy as an outpt. H/H was stable throughout stay and pt was d/c on PPI drip and will continue taking PO Protonix on discharge. Stool cx/C-diff negative. In regards to pt's elevated trops (peak 1.76), her presentation was not consistent with an ACS. She did not experience any anginal symptoms, and ECG shows no acute ischemic changes. Her troponin was likely elevated due to her underlying gastroenteritis and ANDER. She did have an echocardiogram to evaluate her LV wall motion and systolic function and it showed: EF 60-65%, no regional wall motion abnormalities, grade 2 diastolic dysfunction, normal LV size and moderate concentric LVH. Pt needs aggressive risk factor modification with optimal blood pressure and cholesterol control moving forward and this should be addressed as an outpt. Cardiology also recommended considering initiating low dose aspirin therapy. Pt's Abdominal pain improved since admission. Likely gastroenteritis vs. gastritis vs ulcer. Lactate was normal. KUB was normal. Given Bentyl for cramps and Gentle rehydration NSS at 80 along with Probiotic. Pt's HTN and hypothyroidism managed with home meds. Pt given CPAP at night for COSMO. Pt also complained of BUTTS, which was controlled with tylenol/fioricet. Head CT showed no acute intracranial findings. DVT Prophlaxis with SCDs. At time of d/c, pt had no other acute concerns or complaints. Total Time Total Time Spent Total Time Spent (In Minutes): 30 min Discharge Plan Discharge Items Patient Disposition: Home - Self-Care Reason For Visit: GASTROENTERITIS, ?NEW AFIB Discharge Diagnosis: gastritis Condition: Fair Discharge Goals: Diagnostic testing and Improve disease control Activity: Per 'Additional Instructions' section Non-emergency contact: Primary Care Provider Call non-emergency contact if: you have any medication questions and your symptoms worsen Diet: Heart Healthy Addtl Provider Instructions: You were admitted for gastritis and also what we thought was new onset A fib. Upon admission, it was determined that your EKG was actually normal and not A fib. Your dark bowel movement was concerning for a GI bleed, so we monitored your blood levels, which showed us that you were not acutely bleeding from anywhere that would require urgent intervention. Your elevated troponins ( marker for heart injury) were thought to be high secondary to your gastritis and renal insufficiency and were not concerning for an acute heart problem. On discharge, please follow the below instructions: -Follow up with your PCP within one week. They can arrange for an outpatient EGD /colonoscopy. - You will take an oral protonix (you received an IV form here) and talk with your PCP to see if you need to continue taking it after meeting with them - Start out with a bland diet initially and gradually work your way back to your normal diet -Your urine showed an infection while you were here, so take cipro antibiotic for one week on discharge Prescriptions: New pantoprazole 40 mg Tablet,Delayed Release (Dr/Ec) 40 mg PO QAM Qty: 30 RF: 0 ciprofloxacin HCl [Cipro] 250 mg tablet 250 mg PO BID Qty: 14 RF: 0 Continue nizatidine 150 mg Capsule 150 mg PO BID RF: 0 amlodipine 5 mg Tablet 5 mg PO DAILY RF: 0 acetaminophen 500 mg Tablet 500 mg PO Q4 PRN (Reason: Fever Or Pain) RF: 0 levothyroxine 125 mcg Tablet 125 mcg PO DAILY RF: 0 gabapentin 300 mg Capsule 300 mg PO BID RF: 0 furosemide 20 mg Tablet 20 mg PO DAILY RF: 0 losartan 100 mg Tablet 100 mg PO DAILY RF: 0 docusate sodium [Colace] 100 mg Capsule 100 mg PO HS RF: 0 vitamins A,C,U-cyxh-iysscs [PreserVision AREDS] [id number],320-226-200 [id number] Capsule 1 cap PO BID RF: 0 clindamycin HCl 150 mg Capsule 600 mg PO UD PRN (Reason: Prophylaxis) RF: 0 peg 400-propylene glycol [Systane Ultra] 0.4-0.3 % Drops 2 drp OPHTHALMIC (EYE) UD RF: 0 biotin 1 mg Tablet 1 mg PO DAILY RF: 0 white petrolatum-mineral oil [Refresh P.M.] 57.3-42.5 % Ointment 1 applic OPHTHALMIC (EYE) UD RF: 0 Probiotic 1 dose PO DAILY RF: 0 calcium carbonate [Tums] 200 mg calcium (500 mg) Tablet,Chewable 200 mg PO DAILY RF: 0 cholecalciferol (vitamin D3) [Vitamin D3] 1,000 unit Tablet 1,000 unit PO DAILY RF: 0 Stand-Alone Forms: [facility] Discharge Orders: Discharge Order (Routine); Ordered 11/14/18 Ordered By: Dylan Rosenbaum Admission Data Admit Date/Time: 11/13/18 00:53 Attending Provider: Janessa Valles Admit Provider: Carlee Mullins Primary Care Provider: Maria T Godwin Other Providers: Jolene Goldstein ; Fernie Cedeno ; Juanita Cunningham Service: Telemetry Other Interventions: Discharge Summary Assessment (RN) Last Done: 11/14/18 14:37 DC Date/Time DO NOT enter until pt leaves facility: 11/14/18 17:25 Supervising Physician Co-Signing Physician Notes Resident Physician Supervision Note: I independently interviewed and examined the patient and verified the mcintosh history and physical, reviewed labs and image studies, discussed the case with the resident Dr. Rosenbaum and agree with the findings and care plan. Time spent in discharge 35 min Resident Activity Tracking Resident Involvement: Resident Care Provided Care Provided: Adult Hospital Medicine
[2018-11-14] MEDS ORDERED: BUTALBITAL/ACETAMIN/CAFFEINE TAB PO STA (13:28)
[2018-11-15] MEDS ORDERED: PANTOprazole 40 MG TAB PO SCH (09:00)
== END 2018-11-14 17:25 | disposition home or self-care (01) | DRG 392 ==
LOC: ED 20:54 → 2S 11-13 00:53 → SUATTDRO 11-13 00:53 → 2S 11-13 01:26